=== PATIENT | female | born 1970 | race Caucasian/White ===

== ENCOUNTER 2018-10-16 17:46 | Emergency (ER) | payer BC ==
[2018-10-16 17:56] VITALS: RESP 18
[2018-10-16] MEDS ORDERED: KETOROLAC 30 MG/ML 1 ML VIAL IM STA (18:43)
--- NOTE | 2018-10-16 18:52 | ED ---
General Adult HPI - General Chief complaint: Extremity Injury, Lower Stated complaint: rt leg pain Time Seen by Provider: 10/16/18 18:06 Source: patient Mode of arrival: ambulatory Limitations: no limitations - History of Present Illness Initial comments: 48-year-old female patient presents to the emergency department today for evaluation of right leg pain. Patient states she has been having pain to the right medial knee and posteriorly for the last 2 weeks. Patient states the pain worsened today and started radiating down into her calf and up into her thigh. She denies any injury to the knee. States the light does feel swollen. Denies any numbness or tingling to the extremity. Denies fever or chills. Denies any recent travel or long car rides. Denies any use of hormonal medications or history of cancer. Denies any chest pain, shortness of breath, or palpitations. She does report an increase in low back pain over the last few weeks. States this does seem to be improving. She denies any saddle anesthesia, loss of bowel or bladder control, numbness or tingling to the lower extremities. Patient denies any recent rash, shortness breath, chest pain, abdominal pain, nausea, vomiting, diarrhea, constipation, back pain, dizziness, weakness, hematuria, dysuria, urinary urgency, urinary frequency, headache, visual changes, or any other complaints. - Related Data Home Medications Medication Instructions Recorded Confirmed Biotin 5 mg PO DAILY 10/16/18 10/16/18 Naproxen 500 mg PO DAILY PRN 10/16/18 10/16/18 PARoxetine [Paxil] 15 mg PO DAILY 10/16/18 10/16/18 Prasterone (Dhea) [Dhea] 50 mg PO DAILY 10/16/18 10/16/18 Previous Rx's Medication Instructions Recorded Cyclobenzaprine [Flexeril] 10 mg PO TID #15 tab 10/16/18 predniSONE 50 mg PO DAILY #5 tablet 10/16/18 Allergies Allergy/AdvReac Type Severity Reaction Status Date / Time Iodinated Contrast- Oral and Allergy Anaphylaxis Verified 10/16/18 18:10 IV Dye morphine Allergy Itching Verified 10/16/18 18:10 shellfish derived [Shellfish] Allergy Anaphylaxis Verified 10/16/18 18:10 Review of Systems ROS Statement: Those systems with pertinent positive or pertinent negative responses have been documented in the HPI. ROS Other: All systems not noted in ROS Statement are negative. Past Medical History Past Medical History: No Reported History History of Any Multi-Drug Resistant Organisms: None Reported Past Surgical History: Section, Tonsillectomy Past Psychological History: Depression Smoking Status: Never smoker Past Alcohol Use History: Occasional Past Drug Use History: Marijuana General Exam Limitations: no limitations General appearance: alert, in no apparent distress, other (Social well-developed , well-nourished adult female patient in no acute distress. Vital signs upon presentation are temperature 97.9F, pulse 75, respirations 18, blood pressure 132/83, pulse ox 99% on room air.) Eye exam: Present: normal appearance, PERRL, EOMI. Absent: scleral icterus, conjunctival injection, periorbital swelling ENT exam: Present: normal exam, normal oropharynx, mucous membranes moist Respiratory exam: Present: normal lung sounds bilaterally. Absent: respiratory distress, wheezes, rales, rhonchi, stridor Cardiovascular Exam: Present: regular rate, normal rhythm, normal heart sounds. Absent: systolic murmur, diastolic murmur, rubs, gallop, clicks Extremities exam: Present: full ROM, normal capillary refill, other ( Generalized swelling right lower leg. Skin pink, warm, dry. Cap refill < 3seconds. Pedal and post tibial pulses 2+ and equal bilaterally. ). Absent: normal inspection, tenderness, pedal edema, joint swelling, calf tenderness Neurological exam: Present: alert, oriented X3, CN II-XII intact, other ( Strength in all 4 extremities is 5/5. ) Psychiatric exam: Present: normal affect, normal mood Skin exam: Present: warm, dry, intact, normal color. Absent: rash Course Vital Signs 10/16/18 10/16/18 17:52 21:36 Temperature 97.9 F 97.7 F Pulse Rate 75 71 Respiratory 18 18 Rate Blood Pressure 132/83 130/76 O2 Sat by Pulse 99 98 Oximetry Medical Decision Making - Medical Decision Making 48-year-old female patient presents to the emergency department today for evaluation of right leg pain. Patient states the pain radiates down the inside of her lower right leg. Physical examination is unremarkable. Skin is pink, warm, dry. Cap refills less than 3 seconds. Patient is neurologically intact. Pulses are intact. No concerning symptoms for cauda equina. Ultrasound of the right leg is negative for DVT. Patient symptoms are consistent with a lumbar radiculopathy which we will treat with steroids anti-inflammatories and muscle relaxers. She is instructed to follow-up with her primary care physician for further evaluation. Return parameters were discussed in detail. She verbalizes understanding and agrees with this plan. - Radiology Data Radiology results: report reviewed, image reviewed Ultrasound of the right lower extremity was obtained. Report was reviewed in its entirety. Impression by Dr. Cantor shows negative DVT in the right leg. Cyst in the right popliteal space that equals 2.6 x 1.9 x 1.4 cm. Disposition Clinical Impression: Right leg pain, Lumbar radiculopathy Disposition: HOME SELF-CARE Condition: Good Instructions (If sedation given, give patient instructions): Lumbar Radiculopathy (ED), Leg Pain (ED) Additional Instructions: Perform gentle range of motion to the low back. Take medications as directed. Follow-up with your primary care physician for recheck in 1-2 days. Return to the emergency department immediately for any new, worsening, or concerning symptoms. Prescriptions: Cyclobenzaprine [Flexeril] 10 mg PO TID #15 tab predniSONE 50 mg PO DAILY #5 tablet Is patient prescribed a controlled substance at d/c from ED?: No Referrals: Daja Wen DO [Primary Care Provider] - 1-2 days Time of Disposition: 21:45
--- NOTE | 2018-10-16 20:54 | US ---
EXAMINATION TYPE: US venous doppler duplex LE RT DATE OF EXAM: 10/16/2018 6:44 PM COMPARISON: NONE CLINICAL HISTORY: Pain. Right leg pain x 2 weeks, worse with positioning. SIDE PERFORMED: Right TECHNIQUE: The lower extremity deep venous system is examined utilizing real time linear array sonog tita with graded compression, doppler sonography and color-flow sonography. VESSELS IMAGED: External Iliac Vein (EIV) Common Femoral Vein Deep Femoral Vein Greater Saphenous Vein * Femoral Vein Popliteal Vein Small Saphenous Vein * Proximal Calf Veins (* superficial vessels) Right Leg: Negative for DVT Cyst in right popliteal space = 2.6 x 1.9 x 1.4 cm Grayscale, color doppler, spectral doppler imaging performed of the deep veins of the right lower ext remity. There is normal flow, compressibility, vascular waveforms. IMPRESSION: No ultrasound evidence for acute DVT in the right lower extremity. Small Barkley cyst note d towards the end of study.
[2018-10-16 21:38] VITALS: BP 130/76; PULSE 71; TEMP 97.7
== END 2018-10-16 21:53 | disposition home or self-care (01) ==
LOC: EC 17:46
DX: M54.16 Radiculopathy, lumbar region (principal); M79.604 Pain in right leg; F32.9 Major depressive disorder, single episode, unspecified; Z79.899 Other long term (current) drug therapy; Z91.013 Allergy to seafood; Z88.5 Allergy status to narcotic agent; Z91.041 Radiographic dye allergy status
CPT/HCPCS: 93971; 99283; 96372; J1885

== ENCOUNTER 2019-02-22 05:50 | Emergency (ER) | payer BC ==
[2019-02-22 06:36] LABS: Basophils % (A) 1 %; Eosinophils # (A) 0.2 k/uL (0-0.7); Eosinophils % (A) 2 %; HCT 40.9 % (34.0-46.0); HGB 13.6 gm/dL (11.4-16.0); Lymphocytes # (A) 1.4 k/uL (1.0-4.8); Lymphocytes % (A) 18 %; MCH 32.8 pg (25.0-35.0); MCHC 33.3 g/dL (31.0-37.0); MCV 98.6 fL (80.0-100.0); Mean Platelet Volume 6.7; Monocytes # (A) 0.6 k/uL (0-1.0); Monocytes % (A) 8 %; Neutrophils # (A) 5.2 k/uL (1.3-7.7); Neutrophils % (A) 69 %; Platelet Count 306 k/uL (150-450); RBC 4.15 m/uL (3.80-5.40); RDW 12.8 % (11.5-15.5); WBC 7.6 k/uL (3.8-10.6)
[2019-02-22 06:52] LABS: ALT 28 U/L (9-52); AST 32 U/L (14-36); African American GFR (CKD) >90 (>60 ml/min/1.73 sqM); Albumin 4.5 g/dL (3.5-5.0); Alkaline Phosphatase 73 U/L (38-126); Anion Gap 9 mmol/L; Blood Urea Nitrogen 11 mg/dL (7-17); Calcium 9.9 mg/dL (8.4-10.2); Carbon Dioxide 25 mmol/L (22-30); Chloride 104 mmol/L (98-107); Glucose 123 mg/dL (74-99); Magnesium 2.1 mg/dL (1.6-2.3); Potassium 4.1 mmol/L (3.5-5.1); Sodium 138 mmol/L (137-145); Total Bilirubin 0.4 mg/dL (0.2-1.3); Total Protein 7.1 g/dL (6.3-8.2)
[2019-02-22 07:00] LABS: INR 0.9 (<1.2); Partial Thromboplastin Time 23.6 sec (22.0-30.0)
[2019-02-22] MEDS ORDERED: KETOROLAC 30 MG/ML 1 ML VIAL IVP STA (07:06)
--- NOTE | 2019-02-22 07:09 | ED ---
Chest Pain HPI - General Chief Complaint: Chest Pain Stated Complaint: Chest Pain Time Seen by Provider: 02/22/19 06:05 Source: patient, family, RN notes reviewed Mode of arrival: ambulatory Limitations: no limitations - History of Present Illness Initial Comments: This is a 48-year-old female with a prior history of smoking who quit [place]son 7 months ago who does have a family history of heart disease she has of a history of asthma states she had the onset yesterday of some upper back and neck pain about 3 AM this morning she had midsternal chest discomfort dull 8/10 severity that increased with deep breathing and was better with supine positioning. She also states she had a headache and some nausea with it no vomiting. She states is feeling somewhat better now. No cough phlegm production no palpitations no other modifying factors at this time. Patient does states she had a recent trip to [place] and back but it was approximately 2 weeks ago. MD Complaint: chest pain - Related Data Home Medications Medication Instructions Recorded Confirmed PARoxetine [Paxil] 15 mg PO DAILY 10/16/18 02/22/19 Cyclobenzaprine [Flexeril] 10 mg PO TID PRN 02/22/19 02/22/19 Previous Rx's Medication Instructions Recorded Ibuprofen 800 mg PO Q6HR PRN #20 tablet 02/22/19 Allergies Allergy/AdvReac Type Severity Reaction Status Date / Time Iodinated Contrast- Oral and Allergy Anaphylaxis Verified 02/22/19 08:43 IV Dye morphine Allergy Itching Verified 02/22/19 08:43 shellfish derived [Shellfish] Allergy Anaphylaxis Verified 02/22/19 08:43 Review of Systems ROS Statement: Those systems with pertinent positive or pertinent negative responses have been documented in the HPI. ROS Other: All systems not noted in ROS Statement are negative. EKG Findings - EKG Results: EKG: interpreted by ERMD, sinus rhythm (Sinus tachycardia rate of 104. Interval 164 QRS 62 QT since QTC 324/426 low-voltage QRS nonspecific septal configuration) Past Medical History Past Medical History: Asthma History of Any Multi-Drug Resistant Organisms: None Reported Past Surgical History: Section, Tonsillectomy Past Psychological History: Depression Smoking Status: Never smoker Past Alcohol Use History: Occasional Past Drug Use History: Marijuana General Exam - General Exam Comments Initial Comments: This is a well-developed well-nourished awake alert oriented 3 female Limitations: no limitations General appearance: alert, in no apparent distress Head exam: Present: atraumatic, normocephalic, normal inspection Eye exam: Present: normal appearance, PERRL, EOMI. Absent: scleral icterus, conjunctival injection, periorbital swelling ENT exam: Present: normal exam, mucous membranes moist Neck exam: Present: normal inspection, full ROM, other (No stridor JVD or bruits). Absent: tenderness, meningismus, lymphadenopathy Respiratory exam: Present: normal lung sounds bilaterally, chest wall tenderness (Reproducible tenderness palpation along the costal sternal margins bilaterally to the mid to lower sternum.). Absent: respiratory distress, wheezes, rales, rhonchi, stridor Cardiovascular Exam: Present: normal rhythm, tachycardia, normal heart sounds. Absent: systolic murmur, diastolic murmur, rubs, gallop, clicks GI/Abdominal exam: Present: soft, normal bowel sounds. Absent: distended, tenderness, guarding, rebound, rigid, bruit, pulsatile mass Extremities exam: Present: normal inspection, full ROM, normal capillary refill. Absent: tenderness, pedal edema, joint swelling, calf tenderness Back exam: Present: normal inspection Neurological exam: Present: alert, oriented X3, CN II-XII intact Psychiatric exam: Present: normal affect, normal mood Skin exam: Present: warm, dry, intact, normal color. Absent: rash Course Vital Signs 02/22/19 02/22/19 02/22/19 05:54 06:31 08:02 Temperature 98.7 F Pulse Rate 105 H 82 Pulse Rate [ 110 H Tail Trimmer ] Respiratory 22 Rate Blood Pressure 117/84 113/82 O2 Sat by Pulse 96 96 Oximetry 02/22/19 09:21 Temperature 98 F Pulse Rate 87 Pulse Rate [ Tail Trimmer ] Respiratory 19 Rate Blood Pressure 110/63 O2 Sat by Pulse 95 Oximetry Chest Pain MDM - MDM I did review the imaging and report no acute findings. I did discuss findings with the patient and her . The patient's presentation consistent with musculoskeletal chest pain/costochondritis she will be discharged on appropriate medication she is to follow-up with her doctor and return when necessary Disposition Clinical Impression: Costalchondritis, Chest wall syndrome Disposition: HOME SELF-CARE Condition: Good Instructions (If sedation given, give patient instructions): Costochondritis (ED) Prescriptions: Ibuprofen 800 mg PO Q6HR PRN #20 tablet PRN Reason: Pain Is patient prescribed a controlled substance at d/c from ED?: No Referrals: Daja Wen DO [Primary Care Provider] - 1-2 days
--- NOTE | 2019-02-22 07:18 | XR ---
INDICATION: Chest pain COMPARISON: None FINDINGS: Frontal and lateral views of the chest are provided. The cardiomediastinal silhouette and pulmonary vascularity are normal. The lungs are clear. There is no pleural effusion or pneumothorax. There are no acute osseous findings. IMPRESSION: No acute cardiopulmonary disease.
[2019-02-22 07:20] LABS: D-Dimer 0.6 mg/L FEU (<0.60)
[2019-02-22] MEDS ORDERED: FAMOTIDINE 20 MG/2 ML VIAL IV STA (07:29)
[2019-02-22] MEDS ORDERED: methylPREDNISolone SOD SUCCI 125 MG/2 ML VIAL IV STA (07:30)
[2019-02-22] MEDS ORDERED: diphenhydrAMINE 50 MG/ML 1 ML VIAL IVP STA (07:30)
--- NOTE | 2019-02-22 09:09 | CT ---
EXAMINATION TYPE: CT angio chest DATE OF EXAM: 02/22/2019 COMPARISON: Right lower extremity venous Doppler ultrasound dated 10/16/2018 HISTORY: Chest pain CT DLP: 365.1 mGycm. Automated Exposure Control for Dose Reduction was Utilized. CONTRAST: CTA scan of the thorax is performed without and with IV Contrast, patient injected with 100 ml mL of Isovue 370, pulmonary embolism protocol. MIP Images are created on CT scanner and reviewed. FINDINGS: LUNGS: The lungs are grossly clear, there is no concerning parenchymal mass or nodule identified. T here is no pleural effusion or pneumothorax seen. The tracheobronchial tree is patent. MEDIASTINUM: There is suboptimal enhancement of the pulmonary artery and its branches, with greater o pacification of the aorta and the pulmonary arteries. No central pulmonary embolism. There are no gr eater than 1 cm hilar or mediastinal lymph nodes. No cardiomegaly or pericardial effusion is seen. No discrete coronary artery calcifications. OTHER: Too small to accurately characterize hepatic dome lesion measures 8 mm. This is hypoattenuated . Mild multilevel degenerative changes of the spine. IMPRESSION: 1. Markedly suboptimal bolus timing, however no central pulmonary embolus is seen. 2. Incidentally noted 2 small to accurately characterize hepatic lesion.
[2019-02-22 09:22] VITALS: BP 110/63; PULSE 87; RESP 19; TEMP 98
== END 2019-02-22 09:36 | disposition home or self-care (01) ==
LOC: EC 05:50
DX: M94.0 Chondrocostal junction syndrome [Tietze] (principal); R51 Headache; R11.0 Nausea; M54.2 Cervicalgia; M54.6 Pain in thoracic spine; F32.9 Major depressive disorder, single episode, unspecified; Z79.899 Other long term (current) drug therapy; Z87.891 Personal history of nicotine dependence; Z88.5 Allergy status to narcotic agent; Z91.013 Allergy to seafood; Z91.041 Radiographic dye allergy status; Z82.49 Family history of ischemic heart disease and other diseases of the circulatory system
CPT/HCPCS: 36415; 93005; 85379; 80053; 82550; 83735; 84484; 85025; 85610; 85730; 71046; 71275; 99285; 96374; 96375 ×3; J1200; J2930; J1885; Q9967

== ENCOUNTER → 2021-02-13 | Outpatient (CLI) | payer BC ==
--- NOTE | 2021-02-15 21:50 | US ---
EXAMINATION TYPE: US transvaginal DATE OF EXAM: 02/13/2021 COMPARISON: NONE CLINICAL HISTORY: 50-year-old female Post menopausal bleeding N95.0. TECHNIQUE: Transvaginal sonographic images of the pelvis were acquired. Date of LMP: June 2018 EXAM MEASUREMENTS: Uterus: 6.7 x 3.2 x 3.9 cm Endometrial Stripe: 0.2 cm Right Ovary: 1.7 x 1.4 x 1.7 cm Left Ovary: 3.1 x 1.4 x 1.6 cm 1. Uterus: Anteverted. The myometrium is bulky and heterogeneous. Hypoechoic area visualized measu ring 2.0 x 1.6 x 1.4 cm, probable fibroid along the posterior right uterine fundus. Small 4 mm cystic area along the anterior lower uterine segment; query any history of prior section. 2. Endometrium: wnl as visualized 3. Right Ovary: wnl 4. Left Ovary: wnl 5. Bilateral Adnexa: wnl 6. Posterior cul-de-sac: wnl IMPRESSION: 1. Heterogeneous, fibroid uterus with a 2.0 cm focal fibroid right posterior uterine fundus. 2. Thin endometrial stripe measuring 2 mm. 3. Tiny 4 mm cystic area along the anterior lower uterine segment of unknown etiology, possible cervi angeles nabothian cyst. A small scar niche is possible if prior .
== END | disposition home or self-care (01) ==
LOC: RADUSWWP 16:51
PROVIDERS: ATTEND Obstetrics & Gynecology
DX: D25.9 Leiomyoma of uterus, unspecified (principal)
CPT/HCPCS: 76830

== ENCOUNTER → 2021-10-07 | Outpatient (CLI) | payer BC ==
--- NOTE | 2021-10-13 08:43 | MM ---
Reason for exam: clinical finding. Last mammogram was performed 2 years and 6 months ago. History: Patient is postmenopausal. Indicated problem(s): lump or thickening in the right breast. Physical Findings: Nurse Summary: 1cm nodule in the right breast at 7 o'clock (nurse mj). MG 3D Diag Mammo W/Cad SALVADOR Bilateral CC and MLO view(s) were taken. Prior study comparison: April 18, 2019, mammogram, performed at [facility]. The breast tissue is heterogeneously dense. This may lower the sensitivity of mammography. There is chronic nodularity bilaterally. There is no discrete abnormality including area of concern right palpable. These results were verbally communicated with the patient on 10/12/21. ASSESSMENT: Benign, BI-RAD 2 RECOMMENDATION: Ultrasound of the right breast. Routine screening mammogram of both breasts in 1 year. Manage on a clinical basis with regard to right palpable.
--- NOTE | 2021-10-13 08:48 | USB ---
Reason for exam: additional evaluation requested from abnormal screening. History: Patient is postmenopausal. US Breast Limited RT Right limited breast ultrasound including focal area of concern, retroareolar and axilla demonstrates a 1.2 x 0.4 x 1.3cm superficial hypoechoic lesio at 7 o'clock, can be infection. Right breast palpable scanned at 7 o'clock. These results were verbally communicated with the patient on 10/12/21. ASSESSMENT: Probably benign, BI-RAD 3 RECOMMENDATION: Routine screening mammogram of both breasts in 1 year. Manage patient on a clinical basis.
== END | disposition home or self-care (01) ==
LOC: RADMAMWWP 07:28
PROVIDERS: ATTEND Obstetrics & Gynecology
DX: N63.0 Unspecified lump in unspecified breast (principal); N64.52 Nipple discharge; R92.8 Other abnormal and inconclusive findings on diagnostic imaging of breast
CPT/HCPCS: 77062; 77066

== ENCOUNTER 2022-09-08 11:55 | Emergency (ER) | payer BC ==
[2022-09-08 12:04] VITALS: TEMP 98
[2022-09-08] MEDS ORDERED: LIDOCAINE 1% INJ 10MG/ML (30 ML VIAL-PF) SQ ONE (13:13)
[2022-09-08] MEDS ORDERED: KETOROLAC 15 MG/ML 1 ML VIAL IVP STA (13:13)
--- NOTE | 2022-09-08 13:16 | ED ---
General Adult HPI - General Chief complaint: Skin/Abscess/Foreign Body Stated complaint: Mass on bottom Time Seen by Provider: 09/08/22 13:06 Source: patient, RN notes reviewed Mode of arrival: ambulatory - History of Present Illness Initial comments: 52-year-old female presents to the emergency department with a chief complaint of left gluteal abscess. She reports that she has had abscesses on and off for the last 3 months however they usually on their own. This abscess for about 3 days for which she notes worsening redness, tenderness and admits to associated fevers. She has been trying to use hot tea bag and sitz baths with mild relief. She denies any self incisions or draining. She is headache, chest pain, palpitations, nausea, vomiting, diarrhea. Denies history of perirectal abscess or diabetes. - Related Data Home Medications Medication Instructions Recorded Confirmed PARoxetine [Paxil] 10 mg PO DAILY 10/16/18 02/22/19 Cyclobenzaprine [Flexeril] 10 mg PO TID PRN 02/22/19 02/22/19 Previous Rx's Medication Instructions Recorded Ibuprofen 800 mg PO Q6HR PRN #20 tablet 02/22/19 Cephalexin [Keflex] 500 mg PO Q6HR #40 cap 09/08/22 Sulfamethox-Tmp 800-160Mg [Bactrim 1 tab PO Q12HR 10 Days #20 tab 09/08/22 DS 800-160 mg] Allergies Allergy/AdvReac Type Severity Reaction Status Date / Time Iodinated Contrast Media Allergy Anaphylaxis Verified 09/08/22 12:03 [Iodinated Contrast- Oral and IV Dye] morphine Allergy Itching Verified 09/08/22 12:03 shellfish derived [Shellfish] Allergy Anaphylaxis Verified 09/08/22 12:03 Review of Systems ROS Statement: Those systems with pertinent positive or pertinent negative responses have been documented in the HPI. ROS Other: All systems not noted in ROS Statement are negative. Past Medical History Past Medical History: Asthma History of Any Multi-Drug Resistant Organisms: None Reported Past Surgical History: Section, Tonsillectomy Past Psychological History: Depression Past Alcohol Use History: Occasional Past Drug Use History: Marijuana General Exam General appearance: alert, in no apparent distress Head exam: Present: atraumatic, normocephalic, normal inspection Eye exam: Present: normal appearance, PERRL, EOMI. Absent: scleral icterus, conjunctival injection, periorbital swelling ENT exam: Present: normal exam, mucous membranes moist Neck exam: Present: normal inspection. Absent: tenderness, meningismus, lymphadenopathy Respiratory exam: Present: normal lung sounds bilaterally. Absent: respiratory distress, wheezes, rales, rhonchi, stridor Cardiovascular Exam: Present: regular rate, normal rhythm, normal heart sounds. Absent: systolic murmur, diastolic murmur, rubs, gallop, clicks GI/Abdominal exam: Present: soft, normal bowel sounds. Absent: distended, tenderness, guarding, rebound, rigid Extremities exam: Present: normal inspection, full ROM, normal capillary refill. Absent: tenderness, pedal edema, joint swelling, calf tenderness Back exam: Present: normal inspection Neurological exam: Present: alert, oriented X3, CN II-XII intact Psychiatric exam: Present: normal affect, normal mood Skin exam: Present: warm, dry, intact, normal color, other (1cm lesion to L gluteal muscle that is fluctuance, erythema, that is tender. No active bleeding or drianage). Absent: rash Course Vital Signs 09/08/22 11:59 Temperature 98.0 F Pulse Rate 102 H Respiratory 16 Rate Blood Pressure 138/95 O2 Sat by Pulse 100 Oximetry Procedures - Incision & Drainage Consent Obtained: verbal consent, written consent Site: buttock (L) Anesthetic Used: lidocaine 1% I&D Cleaning Method: Chloroprep, Alcohol Wipe Sterile Field Used?: Yes Scalpel Used: #11 Needle Aspiration Performed?: No Irrigation Performed?: Yes I&D Drainage Obtained: Pus, Blood Culture Obtained?: Yes Complications: pain, bleeding, nerve injury, allergic reaction Patient Tolerated Procedure: well, no complications Medical Decision Making - Medical Decision Making Was pt. sent in by a medical professional or institution (, PA, FIFTH HAND, urgent care, hospital, or [facility]cc...) When possible be specific @ -[No] Did you speak to anyone other than the patient for history (EMS, parent, family, police, friend...)? What history was obtained from this source @ -[No] Did you review nursing and triage notes (agree or disagree)? Why? @ -[I reviewed and agree with nursing and triage notes] Were old charts reviewed (outside hosp., previous admission, EMS record, old EKG, old radiological studies, urgent care reports/EKG's, mcc records)? Report findings @ -[No old charts were reviewed] Differential Diagnosis (chest pain, altered mental status, abdominal pain women, abdominal pain men, vaginal bleeding, weakness, fever, dyspnea, syncope, headache, dizziness, GI bleed, back pain, seizure, CVA, palpatations, mental health)? @ -[not applicable] EKG interpreted by me (3pts min.). @ -[As above] X-rays interpreted by me (1pt min.). @ -[None done] CT interpreted by me (1pt min.). @ -[None done] U/S interpreted by me (1pt. min.). @ -[None done] What testing was considered but not performed or refused? (CT, X-rays, U/S, labs)? Why? @ -[None] What meds were considered but not given or refused? Why? @ -[None] Did you discuss the management of the patient with other professionals (professionals i.e. , PA, FIFTH HAND, lab, RT, psych nurse, social media director, high tension tester, teacher, certified juvenile probation officer, assistant case manager)? Give summary @ -[No] Was smoking cessation discussed for >3mins.? @ -[No] Was critical care preformed (if so, how long)? @ -[No] Were there social determinants of health that impacted care today? How? (Homelessness, low income, unemployed, alcoholism, drug addiction, transportat ion, low edu. Level, literacy, decrease access to med. care, long-term, rehab)? @ -[No] Was there de-escalation of care discussed even if they declined (Discuss DNR or withdrawal of care, Hospice)? DNR status @ -[No] What co-morbidities impacted this encounter? (DM, HTN, Smoking, COPD, CAD, Cancer, CVA, ARF, Chemo, Hep., AIDS, mental health diagnosis, sleep apnea, morbid obesity)? @ -[None] Was patient admitted / discharged? Hospital course, mention meds given and route, prescriptions, significant lab abnormalities, going to OR and other pertinent info. @ -42-year-old female presents to the emergency department with an abscess. Thorough history and physical performed, physical exam reveals a an abscess to the left gluteal muscle. Patient had an incision and drainage performed in the emergency department, she is well. Lab work was unremarkable. She was given a prescription for Keflex and Bactrim. I discussed the nature of the illness of an abscess with the patient all questions and concerns were addressed. Return precautions were discussed. I discussed the case with Dr. marc who agrees with plan of care. Undiagnosed new problem with uncertain prognosis? @ -[No] Drug Therapy requiring intensive monitoring for toxicity (Heparin, Nitro, Insulin, Cardizem)? @ -[No] Were any procedures done? @ -[No] Diagnosis/symptom? @ -abscess Acute, or Chronic, or Acute on Chronic? @ -acute Uncomplicated (without systemic symptoms) or Complicated (systemic symptoms)? @ -[default] Side effects of treatment? @ -[No] Exacerbation, Progression, or Severe Exacerbation? @ -[No] Poses a threat to life or bodily function? How? (Chest pain, [place], [place], pneumonia, PE, COPD, DKA, ARF, appy, cholecystitis, CVA, Diverticulitis, Homicidal, Suicidal, threat to staff... and all critical care pts) @ -[No] - Lab Data Result diagrams: 09/08/22 13:45 09/08/22 13:45 Lab Results 09/08/22 09/08/22 Range/Units 13:45 13:45 WBC 7.8 (3.8-10.6) k/uL RBC 3.76 L (3.80-5.40) m/uL Hgb 12.6 (11.4-16.0) gm/dL Hct 37.2 (34.0-46.0) % MCV 99.0 (80.0-100.0) fL MCH 33.6 (25.0-35.0) pg MCHC 34.0 (31.0-37.0) g/dL RDW 12.6 (11.5-15.5) % Plt Count 357 (150-450) k/uL MPV 7.5 Neutrophils % 64 % Lymphocytes % 24 % Monocytes % 6 % Eosinophils % 5 % Basophils % 1 % Neutrophils # 5.0 (1.3-7.7) k/uL Lymphocytes # 1.8 (1.0-4.8) k/uL Monocytes # 0.5 (0-1.0) k/uL Eosinophils # 0.4 (0-0.7) k/uL Basophils # 0.0 (0-0.2) k/uL Sodium 141 (137-145) mmol/L Potassium 3.9 (3.5-5.1) mmol/L Chloride 109 H (98-107) mmol/L Carbon Dioxide 30 (22-30) mmol/L Anion Gap 2 mmol/L BUN 11 (7-17) mg/dL Creatinine 0.80 (0.52-1.04) mg/dL Est GFR (CKD-EPI)AfAm >90 (>60 ml/min/1.73 sqM) Est GFR (CKD-EPI)NonAf 84 (>60 ml/min/1.73 sqM) Glucose 105 H (74-99) mg/dL Calcium 8.9 (8.4-10.2) mg/dL Disposition Clinical Impression: Abscess, gluteal, left Disposition: HOME SELF-CARE Condition: Stable Instructions (If sedation given, give patient instructions): Abscess Incision and Drainage (ED), Abscess (ED) Additional Instructions: Case return to the nearest emergency department if symptoms worsen or persist. Prescriptions: Sulfamethox-Tmp 800-160Mg [Bactrim DS 800-160 mg] 1 tab PO Q12HR 10 Days #20 tab Cephalexin [Keflex] 500 mg PO Q6HR #40 cap Is patient prescribed a controlled substance at d/c from ED?: No Referrals: None,Stated [Primary Care Provider] - 1-2 days Time of Disposition: 14:12
[2022-09-08 13:54] LABS: Basophils % (A) 1 %; Eosinophils # (A) 0.4 k/uL (0-0.7); Eosinophils % (A) 5 %; HCT 37.2 % (34.0-46.0); HGB 12.6 gm/dL (11.4-16.0); Lymphocytes # (A) 1.8 k/uL (1.0-4.8); Lymphocytes % (A) 24 %; MCH 33.6 pg (25.0-35.0); Mean Platelet Volume 7.5; Monocytes # (A) 0.5 k/uL (0-1.0); Monocytes % (A) 6 %; Neutrophils % (A) 64 %; Platelet Count 357 k/uL (150-450); RBC 3.76 m/uL (3.80-5.40); RDW 12.6 % (11.5-15.5); WBC 7.8 k/uL (3.8-10.6)
[2022-09-08 14:23] LABS: African American GFR (CKD) >90 (>60 ml/min/1.73 sqM); Anion Gap 2 mmol/L; Blood Urea Nitrogen 11 mg/dL (7-17); Calcium 8.9 mg/dL (8.4-10.2); Carbon Dioxide 30 mmol/L (22-30); Chloride 109 mmol/L (98-107); Glucose 105 mg/dL (74-99); Non-African American GFR(CKD) 84 (>60 ml/min/1.73 sqM); Potassium 3.9 mmol/L (3.5-5.1); Sodium 141 mmol/L (137-145)
[2022-09-08 14:43] VITALS: RESP 18
[2022-09-08 14:44] VITALS: BP 118/74; PULSE 68
== END 2022-09-08 14:43 | disposition home or self-care (01) ==
LOC: EC 11:55
DX: L02.31 Cutaneous abscess of buttock (principal); J45.909 Unspecified asthma, uncomplicated; F32.A Depression, unspecified; F12.90 Cannabis use, unspecified, uncomplicated; Z91.041 Radiographic dye allergy status; Z88.5 Allergy status to narcotic agent; Z91.013 Allergy to seafood
CPT/HCPCS: 36415; 80048; 85025; 87070; 87205; 99283; 96374; 10060; J2001; J1885

== ENCOUNTER 2022-11-17 16:26 | Observation (INO) | payer BC ==
[2022-11-17] MEDS ORDERED: SODIUM CHLORIDE 0.9% 1,000 ML IV STA (16:37)
[2022-11-17] MEDS ORDERED: fentaNYL (PF) 50 MCG/ML 2 ML AMP IVP STA (16:41)
[2022-11-17] MEDS ORDERED: ONDANSETRON 4 MG/2 ML VIAL IVP STA (16:44)
[2022-11-17 16:54] LABS: Basophils # (A) 0.1 k/uL (0-0.2); Basophils % (A) 1 %; Eosinophils # (A) 0.4 k/uL (0-0.7); Eosinophils % (A) 4 %; HCT 43.7 % (34.0-46.0); HGB 14.6 gm/dL (11.4-16.0); Lymphocytes # (A) 2.9 k/uL (1.0-4.8); Lymphocytes % (A) 29 %; MCH 33.3 pg (25.0-35.0); MCHC 33.4 g/dL (31.0-37.0); MCV 99.8 fL (80.0-100.0); Mean Platelet Volume 7.4; Monocytes # (A) 0.7 k/uL (0-1.0); Monocytes % (A) 7 %; Neutrophils # (A) 5.8 k/uL (1.3-7.7); Neutrophils % (A) 57 %; Platelet Count 370 k/uL (150-450); RBC 4.38 m/uL (3.80-5.40); RDW 12.7 % (11.5-15.5); WBC 10.1 k/uL (3.8-10.6)
--- NOTE | 2022-11-17 17:07 | XR ---
EXAMINATION TYPE: XR chest 1V portable DATE OF EXAM: 11/17/2022 4:44 PM COMPARISON: Chest radiographs from 02/22/2019. TECHNIQUE: XR chest 1V portable Frontal view of the chest. CLINICAL INDICATION:Female, 52 years old with history of chest pain; FINDINGS: Lungs/Pleura: There is flattening of the diaphragm with increased lucency of the lungs. No evidence o f pneumothorax, pleural effusion or focal consolidation. Pulmonary vascularity: Unremarkable. Heart/mediastinum: Cardiomediastinal silhouette is unremarkable. Musculoskeletal: No acute osseous pathology. IMPRESSION: 1. No acute cardiopulmonary disease process. 2. COPD changes.
[2022-11-17 17:10] LABS: INR 0.9 (<1.2); Partial Thromboplastin Time 22.3 sec (22.0-30.0); Prothrombin Time 9.8 sec (9.0-12.0)
[2022-11-17] MEDS ORDERED: HYDROmorphone 0.5 MG/0.5 ML SYRINGE IVP PRN (17:16)
--- NOTE | 2022-11-17 17:38 | US ---
EXAMINATION TYPE: US gallbladder DATE OF EXAM: 11/17/2022 COMPARISON: NONE CLINICAL HISTORY: RUq pain. RUQ pain, nausea TECHNIQUE: Multiple sonographic images of the right upper quadrant are obtained. FINDINGS: EXAM MEASUREMENTS: Liver Length: 15.7 cm Gallbladder Wall: 0.4 cm CBD: 0.6 cm Right Kidney: 9.8 x 4.4 x 4.1 cm MANAGER VEHICLE NOTES:Technical limitations due to large amount of overlying bowel content and patient breathing heavily Pancreas: Obscured by bowel gas Liver: visualized portions appear wnl Gallbladder: hydropic, possible sludge Evidence for sonographic Russ's sign: no CBD: upper limits of normal Right Kidney: no evidence of hydronephrosis IMPRESSION: Distended gallbladder with biliary sludge suggested. No evidence for wall thickening, pericholecystic fluid or positive sonographic Russ's sign to suggest acute cholecystitis.
[2022-11-17 17:47] LABS: ALT 19 U/L (4-34); AST 24 U/L (14-36); African American GFR (CKD) >90 (>60 ml/min/1.73 sqM); Albumin 4.6 g/dL (3.5-5.0); Alkaline Phosphatase 77 U/L (38-126); Anion Gap 14 mmol/L; Blood Urea Nitrogen 12 mg/dL (7-17); Calcium 10.2 mg/dL (8.4-10.2); Carbon Dioxide 21 mmol/L (22-30); Chloride 104 mmol/L (98-107); Glucose 111 mg/dL (74-99); Lipase 534 U/L (23-300); Non-African American GFR(CKD) >90 (>60 ml/min/1.73 sqM); Potassium 3.6 mmol/L (3.5-5.1); Sodium 139 mmol/L (137-145); Total Bilirubin 0.6 mg/dL (0.2-1.3); Total Protein 7.1 g/dL (6.3-8.2)
[2022-11-17] MEDS ORDERED: HYDROmorphone 0.5 MG/0.5 ML SYRINGE IVP STA (17:52)
[2022-11-17] MEDS ORDERED: methylPREDNISolone SOD SUCCI 125 MG/2 ML VIAL IV STA (17:53)
[2022-11-17] MEDS ORDERED: FAMOTIDINE 20 MG/2 ML VIAL IV STA (17:53)
[2022-11-17] MEDS ORDERED: diphenhydrAMINE 50 MG/ML 1 ML VIAL IVP STA (17:53)
--- NOTE | 2022-11-17 18:03 | ED ---
General Adult HPI - General Chief complaint: Chest Pain Stated complaint: chest pain Time Seen by Provider: 11/17/22 16:33 Source: patient, RN notes reviewed, old records reviewed Mode of arrival: wheelchair Limitations: no limitations - History of Present Illness Initial comments: 52-year-old female presenting with 2 hours of lower chest pain and right upper quadrant pain. Pain woke patient from sleep and is severe. She is associated with nausea vomiting. No prior history of coronary artery disease. Patient has not had previous issues with her gallbladder. She does report associated dyspnea which is related to pain. No fever. - Related Data Home Medications Medication Instructions Recorded Confirmed PARoxetine [Paxil] 10 mg PO DIRECTED 10/16/18 11/17/22 Cholecalciferol [Vitamin D3 (25 50 mcg PO DAILY 11/17/22 11/17/22 Mcg = 1000 Iu)] Vitamin E (Dl,Tocopheryl Acet) 400 unit PO DAILY 11/17/22 11/17/22 [Vitamin E (400 Iu = 180 mg)] Allergies Allergy/AdvReac Type Severity Reaction Status Date / Time Iodinated Contrast Media Allergy Anaphylaxis Verified 11/17/22 17:16 [Iodinated Contrast- Oral and IV Dye] morphine Allergy Itching Verified 11/17/22 17:16 shellfish derived [Shellfish] Allergy Anaphylaxis Verified 11/17/22 17:16 Review of Systems ROS Statement: Those systems with pertinent positive or pertinent negative responses have been documented in the HPI. ROS Other: All systems not noted in ROS Statement are negative. Past Medical History Past Medical History: Asthma History of Any Multi-Drug Resistant Organisms: None Reported Past Surgical History: Section, Tonsillectomy Past Psychological History: Depression Past Alcohol Use History: Occasional Past Drug Use History: Marijuana General Exam Limitations: no limitations General appearance: alert, in no apparent distress Head exam: Present: atraumatic, normocephalic Eye exam: Present: normal appearance, PERRL ENT exam: Present: normal exam Neck exam: Present: normal inspection. Absent: tenderness, meningismus Respiratory exam: Present: normal lung sounds bilaterally. Absent: respiratory distress, wheezes Cardiovascular Exam: Present: regular rate, normal rhythm GI/Abdominal exam: Present: tenderness (ruq). Absent: distended Extremities exam: Present: normal inspection, normal capillary refill. Absent: pedal edema, calf tenderness Back exam: Absent: CVA tenderness (R), CVA tenderness (L) Neurological exam: Present: alert, oriented X3, CN II-XII intact. Absent: motor sensory deficit Psychiatric exam: Present: anxious Skin exam: Present: warm, dry, intact, normal color. Absent: cyanosis Course Vital Signs 11/17/22 11/17/22 11/17/22 16:27 17:00 17:30 Temperature 98.1 F Pulse Rate 82 96 81 Respiratory 16 20 20 Rate Blood Pressure 85/60 133/99 155/86 O2 Sat by Pulse 100 100 99 Oximetry 11/17/22 18:00 Temperature Pulse Rate 77 Respiratory 20 Rate Blood Pressure 145/79 O2 Sat by Pulse 100 Oximetry EKG Findings - EKG Comments: EKG Findings:: Sinus rhythm, low voltage, rate 94, SC interval 161, QRS duration 89, QTC 429, no ST segment elevation. Medical Decision Making - Medical Decision Making Was pt. sent in by a medical professional or institution (, PA, SHIPPING AND RECEIVING OPERATOR, urgent care, hospital, or correction...) When possible be specific @ -[No] Did you speak to anyone other than the patient for history (EMS, parent, family, police, friend...)? What history was obtained from this source @ -[No] Did you review nursing and triage notes (agree or disagree)? Why? @ -[I reviewed and agree with nursing and triage notes] Were old charts reviewed (outside hosp., previous admission, EMS record, old EKG, old radiological studies, urgent care reports/EKG's, correction records)? Report findings @ -[No old charts were reviewed] Differential Diagnosis (chest pain, altered mental status, abdominal pain women, abdominal pain men, vaginal bleeding, weakness, fever, dyspnea, syncope, headache, dizziness, GI bleed, back pain, seizure, CVA, palpatations, mental health, musculoskeletal)? @ -[Differential Abdominal Pain Women: Appendicitis, Cholecystitis, diverticulosis, ischemic bowel, pancreatitis, hepatitis, UTI, gastroenteritis, AAA, incarcerated hernia, bowel obstruction, constipation, inflammatory bowel, hepatitis, peptic ulcer disease, splenic infarction, perforated viscus, vulvitis, ovarian torsion, PID, kidney stone, p lacenta abruption, this is not meant to be an all-inclusive list] EKG interpreted by me (3pts min.). @ -[As above] X-rays interpreted by me (1pt min.). @ -[Chest x-ray negative for acute findings] CT interpreted by me (1pt min.). @ -[CT of the aorta and abdomen is performed and shows findings consistent with acute cholecystitis.] U/S interpreted by me (1pt. min.). @ -[Bedside ultrasound showing a distended gallbladder with gallbladder sludge and positive Russ's. Formal ultrasound does show distended gallbladder but negative Russ's. What testing was considered but not performed or refused? (CT, X-rays, U/S, labs)? Why? @ -[None] What meds were considered but not given or refused? Why? @ -[None] Did you discuss the management of the patient with other professionals (professionals i.e. , PA, SHIPPING AND RECEIVING OPERATOR, lab, RT, psych nurse, rn social work, orthopedic cast specialist, teacher, chief security officer, continuous pillowcase cutter)? Give summary @ -[General surgery and internal medicine] Was smoking cessation discussed for >3mins.? @ -[No] Was critical care preformed (if so, how long)? @ -[No] Were there social determinants of health that impacted care today? How? (Home lessness, low income, unemployed, alcoholism, drug addiction, transportation, low edu. Level, literacy, decrease access to med. care, [facility]cc, rehab)? @ -[No] Was there de-escalation of care discussed even if they declined (Discuss DNR or withdrawal of care, Hospice)? DNR status @ -[No] What co-morbidities impacted this encounter? (DM, HTN, Smoking, COPD, CAD, Cancer, CVA, ARF, Chemo, Hep., AIDS, mental health diagnosis, sleep apnea, morbid obesity)? @ -[None] Was patient admitted / discharged? Hospital course, mention meds given and route, prescriptions, significant lab abnormalities, going to OR and other pertinent info. @ -[52-year-old female presenting with acute onset epigastric and right upper quadrant pain. History physical exam finding consistent with acute cholecystitis. EKG is nonischemic. Ultrasound and CT imaging confirming diagnosis of acute cholecystitis. There is a mildly distended, bile duct and a minimally elevated lipase. Liver enzymes are normal. Patient will be admitted to general surgery, Dr. Bhatia with internal medicine and gastroenterology on consult.] Undiagnosed new problem with uncertain prognosis? @ -[No] Drug Therapy requiring intensive monitoring for toxicity (Heparin, Nitro, Insulin, Cardizem)? @ -[No] Were any procedures done? @ -[No] Diagnosis/symptom? @ -[Acute cholecystitis, gallstone pancreatitis] Acute, or Chronic, or Acute on Chronic? @ -[Acute] Uncomplicated (without systemic symptoms) or Complicated (systemic symptoms)? @ -[Complicated] Side effects of treatment? @ -[No] Exacerbation, Progression, or Severe Exacerbation? @ -[No] Poses a threat to life or bodily function? How? (Chest pain, [place], [place], pneumonia, PE, COPD, DKA, ARF, appy, cholecystitis, CVA, Diverticulitis, Homicidal, Suicidal, threat to staff... and all critical care pts) @ -[Yes, ascending cholangitis, sepsis, multiorgan failure.] - Lab Data Result diagrams: 11/17/22 16:37 11/17/22 16:37 Lab Results 11/17/22 11/17/22 11/17/22 Range/Units 16:37 16:37 16:37 WBC 10.1 (3.8-10.6) k/uL RBC 4.38 (3.80-5.40) m/uL Hgb 14.6 (11.4-16.0) gm/dL Hct 43.7 (34.0-46.0) % MCV 99.8 (80.0-100.0) fL MCH 33.3 (25.0-35.0) pg MCHC 33.4 (31.0-37.0) g/dL RDW 12.7 (11.5-15.5) % Plt Count 370 (150-450) k/uL MPV 7.4 Neutrophils % 57 % Lymphocytes % 29 % Monocytes % 7 % Eosinophils % 4 % Basophils % 1 % Neutrophils # 5.8 (1.3-7.7) k/uL Lymphocytes # 2.9 (1.0-4.8) k/uL Monocytes # 0.7 (0-1.0) k/uL Eosinophils # 0.4 (0-0.7) k/uL Basophils # 0.1 (0-0.2) k/uL PT 9.8 (9.0-12.0) sec INR 0.9 (<1.2) APTT 22.3 (22.0-30.0) sec Sodium 139 (137-145) mmol/L Potassium 3.6 (3.5-5.1) mmol/L Chloride 104 (98-107) mmol/L Carbon Dioxide 21 L (22-30) mmol/L Anion Gap 14 mmol/L BUN 12 (7-17) mg/dL Creatinine 0.69 (0.52-1.04) mg/dL Est GFR (CKD-EPI)AfAm >90 (>60 ml/min/1.73 sqM) Est GFR (CKD-EPI)NonAf >90 (>60 ml/min/1.73 sqM) Glucose 111 H (74-99) mg/dL Calcium 10.2 (8.4-10.2) mg/dL Magnesium 2.0 (1.6-2.3) mg/dL Total Bilirubin 0.6 (0.2-1.3) mg/dL AST 24 (14-36) U/L ALT 19 (4-34) U/L Alkaline Phosphatase 77 (38-126) U/L Troponin I (0.000-0.034) ng/mL Total Protein 7.1 (6.3-8.2) g/dL Albumin 4.6 (3.5-5.0) g/dL Lipase 534 H (23-300) U/L 11/17/22 11/17/22 Range/Units 16:37 18:40 WBC (3.8-10.6) k/uL RBC (3.80-5.40) m/uL Hgb (11.4-16.0) gm/dL Hct (34.0-46.0) % MCV (80.0-100.0) fL MCH (25.0-35.0) pg MCHC (31.0-37.0) g/dL RDW (11.5-15.5) % Plt Count (150-450) k/uL MPV Neutrophils % % Lymphocytes % % Monocytes % % Eosinophils % % Basophils % % Neutrophils # (1.3-7.7) k/uL Lymphocytes # (1.0-4.8) k/uL Monocytes # (0-1.0) k/uL Eosinophils # (0-0.7) k/uL Basophils # (0-0.2) k/uL PT (9.0-12.0) sec INR (<1.2) APTT (22.0-30.0) sec Sodium (137-145) mmol/L Potassium (3.5-5.1) mmol/L Chloride (98-107) mmol/L Carbon Dioxide (22-30) mmol/L Anion Gap mmol/L BUN (7-17) mg/dL Creatinine (0.52-1.04) mg/dL Est GFR (CKD-EPI)AfAm (>60 ml/min/1.73 sqM) Est GFR (CKD-EPI)NonAf (>60 ml/min/1.73 sqM) Glucose (74-99) mg/dL Calcium (8.4-10.2) mg/dL Magnesium (1.6-2.3) mg/dL Total Bilirubin (0.2-1.3) mg/dL AST (14-36) U/L ALT (4-34) U/L Alkaline Phosphatase (38-126) U/L Troponin I <0.012 <0.012 (0.000-0.034) ng/mL Total Protein (6.3-8.2) g/dL Albumin (3.5-5.0) g/dL Lipase (23-300) U/L Disposition Clinical Impression: Acute cholecystitis Disposition: ADMITTED IP TO THIS HOSP Condition: Stable Is patient prescribed a controlled substance at d/c from ED?: No Time of Disposition: 19:43
--- NOTE | 2022-11-17 18:54 | CT ---
EXAMINATION TYPE: CT angio thor/abd pel aorta CT DLP: 1504.8 mGycm, Automated exposure control for dose reduction was used. DATE OF EXAM: 11/17/2022 6:30 PM COMPARISON: 02/22/2019. CLINICAL INDICATION:Female, 52 years old with history of CP/Back pain; PHH, c/o posterior chest pain TECHNIQUE: Dissection protocol: Multiple axial CT images of the chest, abdomen, and pelvis were obtai celena prior and to the administration of IV contrast. 3-D reformats and maximum intensity projection fo rmat were performed on a separate workstation. Contrast used:100 mL of Isovue 300 without and with IV Contrast, Oral contrast used: None FINDINGS: ARTERIAL VASCULATURE: No evidence for intramural hematoma of the thoracic or abdominal aorta. The asc ending thoracic aorta is within normal limits for size. The origins of the great vessels are patent. The descending thoracic aorta is within normal limits for size. The abdominal aorta and its major bra nches are patent. There are 2 left renal arteries. No evidence for intimal flap to suggest dissection . PULMONARY ARTERIAL VASCULATURE: Normal caliber. No evidence of filling defect to suggest pulmonary em bolus. VENOUS SYSTEM: Unremarkable Lungs/pleura: The lung parenchyma appears unremarkable. Heart: Within normal limits. Mediastinum: No gross evidence of adenopathy. Lower Neck: No significant findings. Abdomen: Liver: Unremarkable. Gallbladder and Bile ducts: There is gallbladder wall thickening measuring up to 4 mm. The common yuliana t is dilated up to 7 mm. Pancreas: Unremarkable. Spleen: Unremarkable. Adrenal glands: Unremarkable. Kidneys and Ureters: Unremarkable. No hydronephrosis. Bladder: Unremarkable. Reproductive: Unremarkable. Stomach and Bowel: Second portion duodenal diverticulum. No evidence of bowel obstruction. Peritoneum: No evidence of pneumoperitoneum, free fluid, or adenopathy. Musculoskeletal: The osseous structures appear intact. Lymph nodes: No evidence of lymphadenopathy. Abdominal wall/soft tissues: Unremarkable. IMPRESSION: 1. No evidence for thoracic aortic dissection No evidence for aortic aneurysm. 2. Common bile duct dilation in the setting of gallbladder distention with gallbladder wall thickenin g is concerning for acute cholecystitis. Consider HIDA scan.
[2022-11-17] MEDS ORDERED: HYDROmorphone 1 MG/ML 1 ML SYRINGE IVP STA (18:58)
[2022-11-17] MEDS ORDERED: PIPERACILLIN-TAZOBACTAM 3.375 GM in SODIUM CHLORIDE 0.9% 100 ML IVPB STA (19:02)
[2022-11-17] MEDS ORDERED: ACETAMINOPHEN TAB 325 MG TAB PO PRN (19:09)
[2022-11-17] MEDS ORDERED: HYDROmorphone 1 MG/ML 1 ML SYRINGE IVP PRN (19:09)
[2022-11-17] MEDS ORDERED: NALOXONE 0.4 MG/ML 1 ML VIAL IV PRN (19:09)
[2022-11-17] MEDS ORDERED: ONDANSETRON 4 MG/2 ML VIAL IVP PRN (19:09)
[2022-11-17] MEDS: SODIUM CHLORIDE 0.9% 1,000 ML IV SCH (19:56)
[2022-11-18] MEDS: SODIUM CHLORIDE 0.9% 1,000 ML IV SCH ×3 (02:33→20:27)
[2022-11-18] MEDS: PIPERACILLIN-TAZOBACTAM 3.375 GM in SODIUM CHLORIDE 0.9% 100 ML IVPB SCH ×3 (03:49→20:27)
--- NOTE | 2022-11-18 03:49 | P.CONS ---
History of Present Illness - Reason for Consult Consult date: 11/17/22 medical mangement - Chief Complaint abd pain - History of Present Illness 52 year old female with intermittent asthma patient coming in with sudden onset severe sharp pain of the RUQ that started suddenly today and woke her up from after noon nap as she was not feeling well., associated with nausea and vomiting of bilious vomitus . no bleeding, no diarrhea no fever, positive chills. she never had anything similar , she claims to have been in good health , she admits to social alcohol drinking , vaping nicotine and smoking marijuana she reports RUQ and epigastric sharp pain radiates to the back 8/10 in severity , poor appetite . she never had any gall bladder or pancrease problems , denies history of ulcer Review of Systems Pertinent positives as noted in HPI. All other systems were reviewed and are negative Past Medical History Past Medical History: Asthma History of Any Multi-Drug Resistant Organisms: None Reported Past Surgical History: Section, Tonsillectomy Past Psychological History: Depression Past Alcohol Use History: Occasional Past Drug Use History: Marijuana Medications and Allergies Home Medications Medication Instructions Recorded Confirmed Type PARoxetine [Paxil] 10 mg PO DIRECTED 10/16/18 11/17/22 History Cholecalciferol [Vitamin D3 (25 50 mcg PO DAILY 11/17/22 11/17/22 History Mcg = 1000 Iu)] Vitamin E (Dl,Tocopheryl Acet) 400 unit PO DAILY 11/17/22 11/17/22 History [Vitamin E (400 Iu = 180 mg)] Allergies Allergy/AdvReac Type Severity Reaction Status Date / Time Iodinated Contrast Media Allergy Anaphylaxis Verified 11/17/22 17:16 [Iodinated Contrast- Oral and IV Dye] morphine Allergy Itching Verified 11/17/22 17:16 shellfish derived [Shellfish] Allergy Anaphylaxis Verified 11/17/22 17:16 Physical Exam Vitals: Vital Signs Temp Pulse Resp BP Pulse Ox 11/17/22 19:52 85 16 124/66 95 11/17/22 18:00 77 20 145/79 100 11/17/22 17:30 81 20 155/86 99 11/17/22 17:00 96 20 133/99 100 11/17/22 16:27 98.1 F 82 16 85/60 100 Intake and Output 04/05/23 04/05/23 04/05/23 06:59 14:59 22:59 Other: Weight 70.307 kg Constitutional: No acute distress, conversant, pleasant Eyes: Anicteric sclerae, moist conjunctiva, Pupils equal round reactive to light ENMT: NC/AT Oropharynx clear, no erythema, or exudates Neck: Supple, no masses, or JVD No carotid bruits No thyromegaly Lungs: Clear to auscultation Clear to percussion Normal respiratory effort, no accessory muscle use Cardiovascular: Heart regular in rate and rhythm, No murmurs, gallops, or rubs No peripheral edema Abdominal: Soft tender to deep palpation of the RUQ and positive jones sign , no guarding, rebound or rigidity Abdomen moving with respiration Normoactive bowel sounds No hepatomegaly, No splenomegaly No palpable mass No abdominal wall hernia noted Skin: Normal temperature, tone, texture, turgor No induration No subcutaneous nodules No rash, lesions No ulcers Extremities: No digital cyanosis No clubbing Pedal pulses intact and symmetrical Radial pulses intact and symmetrical No calf tenderness Psychiatric: Alert and oriented to person, place and time Appropriate affect fair judgment Neuro Muscles Strength 5/5 in all 4 extremities Sensation to light touch grossly present throughout Cranial nerves II-XII grossly intact Lymphatics: no palpable cervical or supraclavicular lymph nodes Results CBC & Chem 7: 11/17/22 16:37 11/17/22 16:37 Labs: Abnormal Lab Results - Last 24 Hours (Table) 11/17/22 Range/Units 16:37 Carbon Dioxide 21 L (22-30) mmol/L Glucose 111 H (74-99) mg/dL Lipase 534 H (23-300) U/L Assessment and Plan Assessment: acute cholecystitis mangement per gen surgery follow up cultures continue zosyn 3.375 ivpb TID pain control with opiades IVF hydration with normal saline 130 cc per hour NPO liver enzymes unremarkable AST 24 , ALT 14 , alkphos 77 trops negative X2 lipase 534 gall bladder US , showed a distended gall bladder with sludge full code DVT PPX hepairn sc tid 5000 units thank you for this consultation will continue to follow up with you
[2022-11-18 06:06] LABS: Basophils % (A) 0 %; Eosinophils % (A) 0 %; HCT 39.7 % (34.0-46.0); HGB 13.2 gm/dL (11.4-16.0); Lymphocytes # (A) 0.6 k/uL (1.0-4.8); Lymphocytes % (A) 6 %; MCH 34.1 pg (25.0-35.0); MCHC 33.2 g/dL (31.0-37.0); MCV 102.7 fL (80.0-100.0); Macrocytosis Slight; Mean Platelet Volume 7.7; Monocytes # (A) 0.3 k/uL (0-1.0); Monocytes % (A) 3 %; Neutrophils # (A) 8.2 k/uL (1.3-7.7); Neutrophils % (A) 90 %; Platelet Count 285 k/uL (150-450); RBC 3.87 m/uL (3.80-5.40); RDW 13.3 % (11.5-15.5); WBC 9.1 k/uL (3.8-10.6)
[2022-11-18 09:11] LABS: ALT 50 U/L (4-34); AST 62 U/L (14-36); African American GFR (CKD) >90 (>60 ml/min/1.73 sqM); Albumin 3.7 g/dL (3.5-5.0); Albumin/Globulin Ratio 1.5; Alkaline Phosphatase 52 U/L (38-126); Anion Gap 9 mmol/L; Blood Urea Nitrogen 11 mg/dL (7-17); Calcium 9.1 mg/dL (8.4-10.2); Carbon Dioxide 24 mmol/L (22-30); Chloride 107 mmol/L (98-107); Globulin 2.4 g/dL; Glucose 129 mg/dL (74-99); Non-African American GFR(CKD) >90 (>60 ml/min/1.73 sqM); Sodium 140 mmol/L (137-145); Total Bilirubin 0.8 mg/dL (0.2-1.3); Total Protein 6.1 g/dL (6.3-8.2)
[2022-11-18] MEDS: HEPARIN SODIUM,PORCINE/PF 5,000 UNIT/0.5 ML SYRINGE SQ SCH ×3 (10:34→23:44)
[2022-11-18] MEDS: PARoxetine 10 MG TAB PO SCH (13:34)
--- NOTE | 2022-11-18 14:02 | P.CONS ---
History of Present Illness - Reason for Consult Consult date: 11/18/22 Gallstone pancreatitis, acute cholecystitis Requesting physician: Tha Mckee - Chief Complaint Right upper quadrant pain - History of Present Illness This is a pleasant 52-year-old female who presented to the emergency department with complaints of right upper quadrant and epigastric pain. Pain started yesterday increasingly Intense associated with nausea and vomiting. Patient had a ultrasound of the gallbladder is part of her workup which reported distended gallbladder with biliary sludge suggested. No evidence for wall thickening, pericholecystic fluid or positive sonographic Russ sign to suggest acute cholecystitis. no gallstones, mild CBD dilation at 0.6 cm. She further had a CT angiogram thoracic aorta pelvis which reported no evidence of thoracic aortic dissection no evidence for aortic aneurysm. Common bile duct dilation setting of gallbladder distention with gallbladder wall thickening concerning for acute cholecystitis. Consider HIDA scan. Admitting labs WBC 10 hemoglobin 14.6 hematocrit 43 platelet count 370,009 or 0.9 total bilirubin 0.6 AST 24 ALT 19 alkaline phosphatase of 47 lipase 534. Patient states abdominal pain is somewhat improved, however scrubber machine tender to palpation. No further nausea or vomiting at this time. She has been afebrile. She is on Zosyn. She has tentatively scheduled with general surgery for a ch olecystectomy. Today's labs WBC 9 hemoglobin 13 platelet count 285,000 total bilirubin 0.8 AST 62 ALT 50 alkaline phosphatase 52 lipase 37 Review of Systems REVIEW OF SYSTEMS: CARDIOPULMONARY: No chest pain or shortness of breath. Gastrointestinal: Right upper quadrant and epigastric pain, associated with nausea and vomiting. No hematemesis, coffee-ground emesis. No rectal bleeding, or melena. GENITOURINARY: No dysuria or hematuria. MUSCULOSKELETAL: Reports normal range of motion. Joint pain. SKIN: No rashes. No jaundice. ENDOCRINE: No chills, fevers. No excessive weight gain or loss. No polydipsia or polyuria. PSYCHIATRIC: Unremarkable. NEUROLOGY: No change in mental status. Denies dizziness, headache. ENT: Vision unremarkable. CONSTITUTIONAL: No recent weight loss. No fever, chills, night sweats. Past Medical History Past Medical History: Asthma History of Any Multi-Drug Resistant Organisms: None Reported Past Surgical History: Section, Tonsillectomy Additional Past Surgical History / Comment(s): Tubal Past Anesthesia/Blood Transfusion Reactions: No Reported Reaction Past Psychological History: Depression Smoking Status: Vaper Past Alcohol Use History: Occasional Past Drug Use History: Marijuana Medications and Allergies Home Medications Medication Instructions Recorded Confirmed Type PARoxetine [Paxil] 10 mg PO DIRECTED 10/16/18 11/17/22 History Cholecalciferol [Vitamin D3 (25 50 mcg PO DAILY 11/17/22 11/17/22 History Mcg = 1000 Iu)] Vitamin E (Dl,Tocopheryl Acet) 400 unit PO DAILY 11/17/22 11/17/22 History [Vitamin E (400 Iu = 180 mg)] Allergies Allergy/AdvReac Type Severity Reaction Status Date / Time Iodinated Contrast Media Allergy Anaphylaxis Verified 11/17/22 17:16 [Iodinated Contrast- Oral and IV Dye] morphine Allergy Itching Verified 11/17/22 17:16 shellfish derived [Shellfish] Allergy Anaphylaxis Verified 11/17/22 17:16 Physical Exam Vitals: Vital Signs Temp Pulse Pulse Resp BP BP Pulse Ox 11/18/22 07:45 98.6 F 75 18 153/78 97 11/18/22 06:53 60 16 115/71 98 11/18/22 04:10 65 16 11/18/22 03:16 62 16 104/68 96 11/17/22 23:59 69 16 111/63 97 11/17/22 23:20 72 18 110/68 99 11/17/22 22:17 67 18 95/50 100 11/17/22 21:49 66 18 114/64 98 11/17/22 19:52 85 16 124/66 95 11/17/22 18:00 77 20 145/79 100 11/17/22 17:30 81 20 155/86 99 11/17/22 17:00 96 20 133/99 100 11/17/22 16:27 98.1 F 82 16 85/60 100 Intake and Output 11/17/22 11/18/22 11/18/22 22:59 06:59 14:59 Other: Weight 70.307 kg 70.307 kg General appearance: The patient is alert, oriented, appears in no acute distress. HET: Head is normocephalic and atraumatic. Conjunctiva pink. Sclera anicteric. Neck: Supple.. Trachea midline. Heart: S1 S2. Regular rate and rhythm. Lungs: Clear to auscultation. Abdomen: Soft, tender to palpation right upper quadrant, nondistended with bowel sounds. No guarding or rigidity. Skin: No rashes. No jaundice. Extremities: Normal skin color and turgor. No pedal edema. Neurological: No focal deficits. Alert and oriented x3. Results CBC & Chem 7: 11/18/22 05:01 11/18/22 08:04 Labs: Abnormal Lab Results - Last 24 Hours (Table) 11/17/22 11/18/22 Range/Units 16:37 05:01 MCV 102.7 H (80.0-100.0) fL Neutrophils # 8.2 H (1.3-7.7) k/uL Lymphocytes # 0.6 L (1.0-4.8) k/uL Carbon Dioxide 21 L (22-30) mmol/L Glucose 111 H (74-99) mg/dL Lipase 534 H (23-300) U/L Assessment and Plan (1) Right upper quadrant pain Narrative/Plan: 52-year-old female presented with right upper quadrant and epigastric pain with workup concerning for possible acute cholecystitis. Gastroenterology was consulted for gallstone pancreatitis, CT reporting mild CBD dilation at 0.7 cm. No gallstones noted in either gallbladder ultrasound or CT angiogram. LFTs without cholestatic pattern. Unlikely CBD obstruction. Discussed with general surgery no further workup from GI at this time. May proceed with cholecystectomy as scheduled. Current Visit: Yes Status: Acute Code(s): R10.11 - RIGHT UPPER QUADRANT PAIN SNOMED Code(s): 596535428 (2) Acute cholecystitis Current Visit: Yes Status: Acute Code(s): K81.0 - ACUTE CHOLECYSTITIS SNOMED Code(s): 17554271 Plan: 1. Continue symptomatic and supportive care 2. Diet per recommendations from general surgery 3. Gallbladder ultrasound, CTA, labs reviewed with Dr. Gonzales 4. No indications for further workup from gastroenterology, with no plans for ERCP 5. Continue with recommendations from general surgery 6. Repeat CMP tomorrow Thank you for this consultation, we will continue to follow. Dr. Eugenio Gonzales I agree with the dictator's note, documented as a scribe by Angeli Pickering.
[2022-11-18] MEDS ORDERED: IV FLUID CONTINUATION 1,000 ML IV ONE (14:23)
[2022-11-18] MEDS ORDERED: ONDANSETRON 4 MG/2 ML VIAL IVP ONE (14:33)
[2022-11-18] MEDS ORDERED: DEXAMETHASONE SOD PHOSPHATE 4 MG/ML 1 ML VIAL IVP ONE (14:33)
[2022-11-18] MEDS ORDERED: HEPARIN SODIUM,PORCINE 5,000 UNIT/ML 1 ML VIAL SQ ONE (14:48)
[2022-11-18] MEDS ORDERED: MIDAZOLAM 2 MG/2 ML VIAL IVP ONE (14:49)
--- NOTE | 2022-11-18 14:59 | P.GSHP ---
History of Present Illness H&P Date: 11/18/22 Chief Complaint: Acute calculus cholecystitis 52-year-old female presents to the ER last night with complaints of right upper quadrant pain radiating to the mid abdomen. Pain began the day prior. Symptoms associated with nausea and vomiting. No change in the color of her skin urine or stool. Labs showed an elevated lipase level. Repeat lipase today was normal. Liver enzymes were normal yesterday. Today's ALT and AST slightly elevated. She underwent a CT angiogram of the chest abdomen and pelvis negative for dissection. Mild CBD dilation at 7 mm seen. Gallbladder wall thickening also seen. Ultrasound showed gallbladder sludge. She had a positive Russ sig n reportedly. Patient was still having abdominal pain and admitted for that reason. She has been seen by GI who agrees that likelihood of choledocholithiasis currently is low. - Review of Systems Comment: The patient denies any acute changes in vision or hearing, no dysphagia or odynophagia, no chest pain or shortness of breath, no dysuria or hematuria, no headache, no runny nose, no rectal bleeding or melena, no unexplained weight loss Past Medical History Past Medical History: Asthma History of Any Multi-Drug Resistant Organisms: None Reported Past Surgical History: Section, Tonsillectomy Additional Past Surgical History / Comment(s): Tubal Past Anesthesia/Blood Transfusion Reactions: No Reported Reaction Past Psychological History: Depression Smoking Status: Vaper Past Alcohol Use History: Occasional Past Drug Use History: Marijuana Medications and Allergies Home Medications Medication Instructions Recorded Confirmed Type PARoxetine [Paxil] 10 mg PO DIRECTED 10/16/18 11/17/22 History Cholecalciferol [Vitamin D3 (25 50 mcg PO DAILY 11/17/22 11/17/22 History Mcg = 1000 Iu)] Vitamin E (Dl,Tocopheryl Acet) 400 unit PO DAILY 11/17/22 11/17/22 History [Vitamin E (400 Iu = 180 mg)] Allergies Allergy/AdvReac Type Severity Reaction Status Date / Time Iodinated Contrast Media Allergy Anaphylaxis Verified 11/18/22 14:34 [Iodinated Contrast- Oral and IV Dye] morphine Allergy Itching Verified 11/18/22 14:34 shellfish derived [Shellfish] Allergy Anaphylaxis Verified 11/18/22 14:34 Surgical - Exam Vital Signs Temp Pulse Resp BP Pulse Ox 98.1 F 82 16 85/60 100 11/17/22 16:27 11/17/22 16:27 11/17/22 16:27 11/17/22 16:27 11/17/22 16:27 Physical exam: General: Well-developed, well-nourished HEENT: Normocephalic, sclerae nonicteric Abdomen: Mild right upper quadrant tenderness, nondistended Extremities: No edema Neuro: Alert and oriented Results - Labs 11/18/22 05:01 11/18/22 08:04 Abnormal Lab Results - Last 24 Hours (Table) 11/17/22 11/18/22 11/18/22 Range/Units 16:37 05:01 08:04 MCV 102.7 H (80.0-100.0) fL Neutrophils # 8.2 H (1.3-7.7) k/uL Lymphocytes # 0.6 L (1.0-4.8) k/uL Carbon Dioxide 21 L (22-30) mmol/L Glucose 111 H 129 H (74-99) mg/dL AST 62 H (14-36) U/L ALT 50 H (4-34) U/L Total Protein 6.1 L (6.3-8.2) g/dL Lipase 534 H (23-300) U/L Diabetes panel 11/17/22 11/18/22 Range/Units 16:37 08:04 Sodium 139 140 (137-145) mmol/L Potassium 3.6 4.0 (3.5-5.1) mmol/L Chloride 104 107 (98-107) mmol/L Carbon Dioxide 21 L 24 (22-30) mmol/L BUN 12 11 (7-17) mg/dL Creatinine 0.69 0.68 (0.52-1.04) mg/dL Glucose 111 H 129 H (74-99) mg/dL Calcium 10.2 9.1 (8.4-10.2) mg/dL AST 24 62 H (14-36) U/L ALT 19 50 H (4-34) U/L Alkaline Phosphatase 77 52 (38-126) U/L Total Protein 7.1 6.1 L (6.3-8.2) g/dL Albumin 4.6 3.7 (3.5-5.0) g/dL Calcium panel 11/17/22 11/18/22 Range/Units 16:37 08:04 Calcium 10.2 9.1 (8.4-10.2) mg/dL Albumin 4.6 3.7 (3.5-5.0) g/dL Pituitary panel 11/17/22 11/18/22 Range/Units 16:37 08:04 Sodium 139 140 (137-145) mmol/L Potassium 3.6 4.0 (3.5-5.1) mmol/L Chloride 104 107 (98-107) mmol/L Carbon Dioxide 21 L 24 (22-30) mmol/L BUN 12 11 (7-17) mg/dL Creatinine 0.69 0.68 (0.52-1.04) mg/dL Glucose 111 H 129 H (74-99) mg/dL Calcium 10.2 9.1 (8.4-10.2) mg/dL Adrenal panel 11/17/22 11/18/22 Range/Units 16:37 08:04 Sodium 139 140 (137-145) mmol/L Potassium 3.6 4.0 (3.5-5.1) mmol/L Chloride 104 107 (98-107) mmol/L Carbon Dioxide 21 L 24 (22-30) mmol/L BUN 12 11 (7-17) mg/dL Creatinine 0.69 0.68 (0.52-1.04) mg/dL Glucose 111 H 129 H (74-99) mg/dL Calcium 10.2 9.1 (8.4-10.2) mg/dL Total Bilirubin 0.6 0.8 (0.2-1.3) mg/dL AST 24 62 H (14-36) U/L ALT 19 50 H (4-34) U/L Alkaline Phosphatase 77 52 (38-126) U/L Total Protein 7.1 6.1 L (6.3-8.2) g/dL Albumin 4.6 3.7 (3.5-5.0) g/dL Assessment and Plan (1) Gallbladder calculus with acute cholecystitis Narrative/Plan: 52-year-old female with acute calculus cholecystitis. Remains possible that gallstone pancreatitis was the primary etiology for her presentation. Labs and history do not suggest a persistent common bile duct stone. Options reviewed with patient and family in detail. Case was also reviewed with GI earlier today. We have decided to proceed with laparoscopic, possible open cholecystectomy at this time. If postoperatively we are suspicious for choledocholithiasis Will perform either MRCP or ERCP at that time. Risks of bleeding, infection, bile leak, bile duct injury, retained common bile duct stone, trocar injury, conversion to an open procedure, hernia, anesthesia related complications were reviewed. The patient understands and wishes to proceed. Current Visit: Yes Status: Acute Code(s): K80.00 - CALCULUS OF GALLBLADDER W ACUTE CHOLECYST W/O OBSTRUCTION SNOMED Code(s): 19811050
[2022-11-18] MEDS ORDERED: SUCCINYLCHOLINE CHLORIDE 200 MG/10 ML VIAL IV ONE (15:03)
[2022-11-18] MEDS ORDERED: LIDOCAINE 2% INJ 20 MG/ML (2 ML VIAL) ONE (15:03)
[2022-11-18] MEDS ORDERED: fentaNYL (PF) 50 MCG/ML 2 ML AMP ONE (15:03)
[2022-11-18] MEDS ORDERED: GLYCOPYRROLATE 0.2 MG/ML 2 ML VIAL ONE (15:03)
[2022-11-18] MEDS ORDERED: MIDAZOLAM 2 MG/2 ML VIAL ONE (15:03)
[2022-11-18] MEDS ORDERED: HYDROmorphone (PF) 1 MG/ML ONE (15:03)
[2022-11-18] MEDS ORDERED: LABETALOL 5 MG/ML VIAL MDV ONE (15:03)
[2022-11-18] MEDS ORDERED: PHENYLEPHRINE-0.9% NACL SYG 1,000 MCG/10 ML SYRINGE ONE (15:03)
[2022-11-18] MEDS ORDERED: NEOSTIGMINE 1 MG/ML 10 ML VIAL ONE (15:03)
[2022-11-18] MEDS ORDERED: PROPOFOL 10 MG/ML 20 ML VIAL IV ONE (15:03)
[2022-11-18] MEDS ORDERED: KETOROLAC 15 MG/ML 1 ML VIAL ONE (15:03)
[2022-11-18] MEDS ORDERED: ROCURONIUM 10 MG/ML (5 ML VIAL) IV ONE (15:03)
[2022-11-18] MEDS ORDERED: BUPIVACAIN-EPI 0.25%-1:200,000 30 ML VIAL SQ ONE (15:36)
--- NOTE | 2022-11-18 16:30 | P.OP ---
Date of Procedure: 11/18/22 Procedure(s) Performed: PREOPERATIVE DIAGNOSIS: Acute calculus cholecystitis POSTOPERATIVE DIAGNOSIS: Same, small vocal hernia PROCEDURE: Laparoscopic cholecystectomy SURGEON: Marcus EBL: Minimal see anesthesia record ANESTHESIA: Gen. COMPLICATIONS: None OPERATIVE PROCEDURE: The patient was brought and placed on the operating room table in the supine position. The patient was placed under general anesthesia at that time. The abdomen was prepped and draped in the usual sterile fashion. A small curvilinear infraumbilical incision was made. Of note the patient did have a small umbilical hernia containing fat that was not addressed at this time. The fascia was grasped with the Abdulaziz forceps. The fascia was retracted anteriorly. The Veress needle was advanced into the peritoneal cavity. The saline drop test was normal. Insufflation took place up to 15 mmHg. A 5 mm optical trocar was advanced and the peritoneal cavity. 2 additional 5 mm trochars were placed in the right upper quadrant under direct visualization. A 12 mm trocar was advanced into the epigastric incision site. The gallbladder was acutely inflamed with a thickened gallbladder wall. The gallbladder was retracted superiorly and laterally. The peritoneum overlying the infundibulum was bluntly dissected. The patient's cystic duct was visualized. The junction between the cystic duct common and hepatic duct was identified. The critical view of safety was achieved after blunt dissection. The cystic duct was then di vided after placement of 3 12 mm clips on the patient's side and one on the specimen side. The cystic artery was identified and clipped as well. A small vessel was seen along the gallbladder fossa and clipped as well. The gallbladder was then removed from the liver bed using electrocautery. In the course of removing the gallbladder from the gallbladder wall a small pinhole in the posterior wall of the gallbladder was noted. Pus was seen emanating from that opening. The suction device was used to evacuate further purulence from the gallbladder lumen. The gallbladder was then removed from the epigastric trocar site with an Endo Catch bag. The gallbladder fossa was irrigated with saline. There was no evidence of any bleeding or biliary drainage seen. The fascia at the 12 millimeter site was closed using a Aleksander-Vesna 0 Vicryl stitch. The trochars were then removed. The skin at all 4 sites was closed using a 4-0 Monocryl stitch. Skin glue was utilized on the incision sites. At the end of this procedure the sponge and needle counts were correct. DISPOSITION: Stable to the recovery room
[2022-11-18] MEDS: HYDROcodone/APAP 5-325MG 1 EACH TAB PO PRN (20:28)
[2022-11-18] MEDS: HYDROmorphone 0.5 MG/0.5 ML SYRINGE IVP PRN (23:47)
[2022-11-19] MEDS: HYDROmorphone 0.5 MG/0.5 ML SYRINGE IVP PRN ×5 (03:42→20:44)
[2022-11-19] MEDS: PIPERACILLIN-TAZOBACTAM 3.375 GM in SODIUM CHLORIDE 0.9% 100 ML IVPB SCH ×3 (03:43→20:43)
[2022-11-19] MEDS: SODIUM CHLORIDE 0.9% 1,000 ML IV SCH ×3 (03:43→18:20)
[2022-11-19] MEDS: HYDROcodone/APAP 5-325MG 1 EACH TAB PO PRN ×2 (06:55→18:18)
[2022-11-19 07:17] LABS: HCT 35.8 % (34.0-46.0); HGB 11.9 gm/dL (11.4-16.0); MCH 34.7 pg (25.0-35.0); MCHC 33.2 g/dL (31.0-37.0); MCV 104.6 fL (80.0-100.0); Macrocytosis Slight; Mean Platelet Volume 7.5; Platelet Count 281 k/uL (150-450); RBC 3.43 m/uL (3.80-5.40); RDW 12.9 % (11.5-15.5); WBC 11.3 k/uL (3.8-10.6)
[2022-11-19 07:25] LABS: ALT 64 U/L (4-34); AST 56 U/L (14-36); African American GFR (CKD) >90 (>60 ml/min/1.73 sqM); Albumin 3.3 g/dL (3.5-5.0); Albumin/Globulin Ratio 1.5; Alkaline Phosphatase 48 U/L (38-126); Anion Gap 4 mmol/L; Blood Urea Nitrogen 14 mg/dL (7-17); Calcium 8.7 mg/dL (8.4-10.2); Carbon Dioxide 27 mmol/L (22-30); Chloride 107 mmol/L (98-107); Globulin 2.2 g/dL; Glucose 107 mg/dL (74-99); Non-African American GFR(CKD) 90 (>60 ml/min/1.73 sqM); Potassium 4.1 mmol/L (3.5-5.1); Sodium 138 mmol/L (137-145); Total Bilirubin 0.6 mg/dL (0.2-1.3); Total Protein 5.5 g/dL (6.3-8.2)
[2022-11-19] MEDS: CHOLECALCIFEROL 25 MCG (1000 IU) TABLET PO SCH (08:37)
[2022-11-19] MEDS: VITAMIN E (DL,TOCOPHERYL ACET) 400 UNIT (180 MG) CAP PO SCH (08:38)
[2022-11-19] MEDS: HEPARIN SODIUM,PORCINE/PF 5,000 UNIT/0.5 ML SYRINGE SQ SCH ×3 (08:38→20:44)
[2022-11-19] MEDS: PARoxetine 10 MG TAB PO SCH (08:38)
--- NOTE | 2022-11-19 15:05 | P.PN ---
Subjective Progress Note Date: 11/19/22 Principal diagnosis: Cholecystitis This is a pleasant 52-year-old female who presented to the emergency department with complaints of right upper quadrant and epigastric pain. Pain started yesterday increasingly Intense associated with nausea and vomiting. Patient had a ultrasound of the gallbladder is part of her workup which reported distended gallbladder with biliary sludge suggested. No evidence for wall thickening, pericholecystic fluid or positive sonographic Russ sign to suggest acute cholecystitis. no gallstones, mild CBD dilation at 0.6 cm. She further had a CT angiogram thoracic aorta pelvis which reported no evidence of thoracic aortic dissection no evidence for aortic aneurysm. Common bile duct dilation setting of gallbladder distention with gallbladder wall thickening concerning for acute cholecystitis. Consider HIDA scan. Admitting labs WBC 10 hemoglobin 14.6 hematocrit 43 platelet count 370,009 or 0.9 total bilirubin 0.6 AST 24 ALT 19 alkaline phosphatase of 47 lipase 534. Patient states abdominal pain is somewhat improved, however shaker tender to palpation. No further nausea or vomiting at this time. She has been afebrile. She is on Zosyn. She has tentatively scheduled with general surgery for a cholecystectomy. Today's labs WBC 9 hemoglobin 13 platelet count 285,000 total bilirubin 0.8 AST 62 ALT 50 alkaline phosphatase 52 lipase 37 11/19/2022: Patient seen and examined today as a follow-up. Yesterday she underwent cholecystectomy with Dr. Velazquez. States she's having some epigastric and surgical tenderness. No nausea or vomiting. Repeat labs total bilirubin 0.6 AST 56 ALT 64 alkaline phosphatase 48 Objective - Vital Signs Vital signs: Vital Signs Temp 98.6 F 11/19/22 06:38 Pulse 85 11/19/22 06:38 Resp 15 11/19/22 06:38 BP 110/82 11/19/22 06:38 Pulse Ox 93 L 11/19/22 06:38 FiO2 Intake & Output 11/18/22 11/18/22 11/19/22 06:59 18:59 06:59 Intake Total 1200 Output Total 5 Balance 1195 Weight 70.307 kg Intake: IV 1200 Output: Estimated Blood Loss 5 Other: # Voids 0 2 - Exam General appearance: The patient is alert, oriented, appears in no acute distress. HET: Head is normocephalic and atraumatic. Conjunctiva pink. Sclera anicteric. Neck: Supple without lymphadenopathy. Abdomen: Soft, surgical tenderness, surgical sites clean dry and intact. No guarding or rigidity. Extremities: Normal skin color and turgor. No pedal edema Skin: No rashes, no jaundice Neurological: No focal deficits. Alert and oriented. - Labs CBC & Chem 7: 11/19/22 07:02 11/19/22 07:02 Labs: Abnormal Lab Results - Last 24 Hours (Table) 11/18/22 Range/Units 08:04 Glucose 129 H (74-99) mg/dL AST 62 H (14-36) U/L ALT 50 H (4-34) U/L Total Protein 6.1 L (6.3-8.2) g/dL Assessment and Plan (1) Right upper quadrant pain Narrative/Plan: 52-year-old female presented with right upper quadrant and epigastric pain with workup concerning for possible acute cholecystitis. Gastroenterology was consulted for gallstone pancreatitis, CT reporting mild CBD dilation at 0.7 cm. No gallstones noted in either gallbladder ultrasound or CT angiogram. LFTs without cholestatic pattern. Unlikely CBD obstruction. Discussed with general surgery no further workup from GI at this time. May proceed with cholecystectomy as scheduled. Current Visit: Yes Status: Acute Code(s): R10.11 - RIGHT UPPER QUADRANT PAIN SNOMED Code(s): 207343843 (2) Acute cholecystitis Narrative/Plan: Patient status post cholecystectomy with Gen. surgery Current Visit: Yes Status: Acute Code(s): K81.0 - ACUTE CHOLECYSTITIS SNOMED Code(s): 62828835 Plan: 1. Continue symptomatic and supportive care 2. Diet per recommendations from general surgery 3. CMP reviewed today, LFTs are trending down. 4. No indication for any further gastroenterology workup Thank you for this consultation, gastroenterology will sign off at this time. Dr. Eugenio Gonzales I agree with the dictator's note, documented as a scribe by Angeli Pickering.
--- NOTE | 2022-11-19 16:43 | P.PN ---
Subjective Progress Note Date: 11/19/22 Principal diagnosis: Acute cholecystitis Patient complaining of some soreness in the right upper abdomen. She says it is better than it was preoperatively. Her labs show leukocytosis at this time which is not surprising given the appearance of the gallbladder yesterday. She is afebrile. Some nausea this morning. Objective - Vital Signs Vital signs: Vital Signs Temp 98.1 F 11/19/22 14:00 Pulse 66 11/19/22 14:00 Resp 12 11/19/22 14:00 BP 119/66 11/19/22 14:00 Pulse Ox 95 11/19/22 14:00 FiO2 Intake & Output 11/18/22 11/19/22 11/19/22 18:59 06:59 18:59 Intake Total 1200 Output Total 5 Balance 1195 Weight 70.307 kg Intake: IV 1200 Output: Estimated Blood Loss 5 Other: # Voids 0 2 - Exam Abdomen: Soft, mild right upper quadrant tenderness, incisions clean and dry - Labs CBC & Chem 7: 11/19/22 07:02 11/19/22 07:02 Labs: Abnormal Lab Results - Last 24 Hours (Table) 11/19/22 11/19/22 11/19/22 Range/Units 07:02 07:02 07:02 WBC 11.3 H (3.8-10.6) k/uL RBC 3.43 L (3.80-5.40) m/uL MCV 104.6 H (80.0-100.0) fL Glucose 107 H (74-99) mg/dL AST 56 H (14-36) U/L ALT 64 H (4-34) U/L Total Protein 5.5 L (6.3-8.2) g/dL Albumin 3.3 L (3.5-5.0) g/dL Procalcitonin 0.14 H (0.02-0.09) ng/mL Assessment and Plan (1) Gallbladder calculus with acute cholecystitis Narrative/Plan: Patient doing fairly well after lap scopic cholecystectomy yesterday for acute cholecystitis with purulent gallbladder. Gradually advance diet. Continue analgesics. Continue IV antibiotics. Probable discharge tomorrow. Current Visit: Yes Status: Acute Code(s): K80.00 - CALCULUS OF GALLBLADDER W ACUTE CHOLECYST W/O OBSTRUCTION SNOMED Code(s): 95100742
--- NOTE | 2022-11-19 17:11 | P.PN ---
Subjective Progress Note Date: 11/19/22 "52 year old female with intermittent asthma patient coming in with sudden onset severe sharp pain of the RUQ that started suddenly today and woke her up from after noon nap as she was not feeling well., associated with nausea and vomiting of bilious vomitus . no bleeding, no diarrhea no fever, positive chills. she never had anything similar , she claims to have been in good health , she admits to social alcohol drinking , vaping nicotine and smoking marijuana she reports RUQ and epigastric sharp pain radiates to the back 8/10 in severity , poor appetite . she never had any gall bladder or pancrease problems , denies history of ulcer" No new systemic symptoms continues to have postop pain with some nausea Objective - Vital Signs Vital signs: Vital Signs Temp 98.1 F 11/19/22 14:00 Pulse 66 11/19/22 14:00 Resp 12 11/19/22 14:00 BP 119/66 11/19/22 14:00 Pulse Ox 95 11/19/22 14:00 FiO2 Intake & Output 11/18/22 11/19/22 11/19/22 18:59 06:59 18:59 Intake Total 1200 Output Total 5 Balance 1195 Weight 70.307 kg Intake: IV 1200 Output: Estimated Blood Loss 5 Other: # Voids 0 2 - Exam Constitutional: No acute distress, conversant, pleasant Eyes: Anicteric sclerae, moist conjunctiva, Pupils equal round reactive to light ENMT: NC/AT Oropharynx clear, no erythema, or exudates Neck: Supple, no masses, or JVD No carotid bruits No thyromegaly Lungs: Clear to auscultation Clear to percussion Normal respiratory effort, no accessory muscle use Cardiovascular: Heart regular in rate and rhythm, No murmurs, gallops, or rubs No peripheral edema Abdominal: Soft Mild tenderness to deep palpation of the RUQ and positive jones sign , no guarding, rebound or rigidity Abdomen moving with respiration Normoactive bowel sounds No hepatomegaly, No splenomegaly No palpable mass No abdominal wall hernia noted Skin: Normal temperature, tone, texture, turgor No induration No subcutaneous nodules No rash, lesions No ulcers Extremities: No digital cyanosis No clubbing Pedal pulses intact and symmetrical Radial pulses intact and symmetrical No calf tenderness Psychiatric: Alert and oriented to person, place and time Appropriate affect fair judgment Neuro Muscles Strength 5/5 in all 4 extremities Sensation to light touch grossly present throughout Cranial nerves II-XII grossly intact Lymphatics: no palpable cervical or supraclavicular lymph nodes - Labs CBC & Chem 7: 11/19/22 07:02 11/19/22 07:02 Labs: Abnormal Lab Results - Last 24 Hours (Table) 11/19/22 11/19/22 11/19/22 Range/Units 07:02 07:02 07:02 WBC 11.3 H (3.8-10.6) k/uL RBC 3.43 L (3.80-5.40) m/uL MCV 104.6 H (80.0-100.0) fL Glucose 107 H (74-99) mg/dL AST 56 H (14-36) U/L ALT 64 H (4-34) U/L Total Protein 5.5 L (6.3-8.2) g/dL Albumin 3.3 L (3.5-5.0) g/dL Procalcitonin 0.14 H (0.02-0.09) ng/mL Assessment and Plan Assessment: Acute cholecystitis Mangement per gen surgery follow up cultures continue zosyn 3.375 ivpb TID pain control with opiates per General Surgery IVF hydration with normal saline On clear liquids per Gen. surgery liver enzymes unremarkable AST 24 , ALT 14 , alkphos 77 trops negative X2 lipase 534 down to 37 gall bladder US , showed a distended gall bladder with sludge full code DVT PPX hepairn sc tid 5000 units
[2022-11-20] MEDS: SODIUM CHLORIDE 0.9% 1,000 ML IV SCH ×2 (03:50→10:57)
[2022-11-20] MEDS: PIPERACILLIN-TAZOBACTAM 3.375 GM in SODIUM CHLORIDE 0.9% 100 ML IVPB SCH ×2 (04:05→11:26)
[2022-11-20] MEDS: HYDROmorphone 0.5 MG/0.5 ML SYRINGE IVP PRN (08:20)
[2022-11-20] MEDS: VITAMIN E (DL,TOCOPHERYL ACET) 400 UNIT (180 MG) CAP PO SCH (08:21)
[2022-11-20] MEDS: PARoxetine 10 MG TAB PO SCH (08:21)
[2022-11-20] MEDS: CHOLECALCIFEROL 25 MCG (1000 IU) TABLET PO SCH (08:21)
[2022-11-20] MEDS: HEPARIN SODIUM,PORCINE/PF 5,000 UNIT/0.5 ML SYRINGE SQ SCH (08:21)
[2022-11-20 08:43] LABS: Basophils % (A) 0 %; Eosinophils # (A) 0.1 k/uL (0-0.7); Eosinophils % (A) 1 %; HCT 38.2 % (34.0-46.0); HGB 12.6 gm/dL (11.4-16.0); Lymphocytes # (A) 1.5 k/uL (1.0-4.8); Lymphocytes % (A) 21 %; MCH 34.2 pg (25.0-35.0); MCHC 32.9 g/dL (31.0-37.0); Macrocytosis Slight; Mean Platelet Volume 7.7; Monocytes # (A) 0.7 k/uL (0-1.0); Monocytes % (A) 9 %; Neutrophils % (A) 67 %; Platelet Count 291 k/uL (150-450); RBC 3.67 m/uL (3.80-5.40); RDW 12.7 % (11.5-15.5); WBC 7.5 k/uL (3.8-10.6)
[2022-11-20 08:46] VITALS: BP 135/81; PULSE 70; RESP 18; TEMP 97.4
[2022-11-20 08:58] LABS: ALT 74 U/L (4-34); AST 61 U/L (14-36); African American GFR (CKD) >90 (>60 ml/min/1.73 sqM); Albumin 3.3 g/dL (3.5-5.0); Albumin/Globulin Ratio 1.4; Alkaline Phosphatase 50 U/L (38-126); Anion Gap 6 mmol/L; Blood Urea Nitrogen 8 mg/dL (7-17); Calcium 8.5 mg/dL (8.4-10.2); Carbon Dioxide 25 mmol/L (22-30); Chloride 108 mmol/L (98-107); Globulin 2.4 g/dL; Glucose 93 mg/dL (74-99); Non-African American GFR(CKD) >90 (>60 ml/min/1.73 sqM); Sodium 139 mmol/L (137-145); Total Bilirubin 0.5 mg/dL (0.2-1.3); Total Protein 5.7 g/dL (6.3-8.2)
--- NOTE | 2022-11-20 09:14 | P.DS ---
Providers Date of admission: 11/17/22 19:12 Expected date of discharge: 11/20/22 Attending physician: Derek Velazquez Consults: 11/17/22 19:09 Consult Physician Routine Consulting Provider: Saul Rebollar Consult Reason/Comments: Medical management Do you want consulting provider notified?: Yes Consult Physician Routine Consulting Provider: Pati Gonzales Consult Reason/Comments: Gallstone pancreatitis, acute cholecystitis Do you want consulting provider notified?: Yes 11/17/22 22:10 Consult Physician Routine Consulting Provider: Derek Velazquez Consult Reason/Comments: acute cholecystitis Do you want consulting provider notified?: Yes Primary care physician: Stated None - Discharge Diagnosis(es) (1) Gallbladder calculus with acute cholecystitis Patient was admitted with acute calculus cholecystitis. Intraoperatively patient was found have purulent fluid within the gallbladder. Patient doing better postoperatively. Pain is gradually lessening. She is tolerating diet today. No nausea at this time. She would like to go home today. We'll discharge. Follow-up as outpatient. We'll continue antibiotics postdischarge. Current Visit: Yes Status: Acute Patient Condition at Discharge: Stable Plan - Discharge Summary Discharge Rx Participant: Yes New Discharge Prescriptions: New HYDROcodone/APAP 5-325MG [[place] 5-325] 1 tab PO Q6HR PRN 3 Days #6 tab PRN Reason: Analgesia No Action PARoxetine [Paxil] 10 mg PO DIRECTED Cholecalciferol [Vitamin D3 (25 Mcg = 1000 Iu)] 50 mcg PO DAILY Vitamin E (Dl,Tocopheryl Acet) [Vitamin E (400 Iu = 180 mg)] 400 unit PO DAILY Discharge Medication List PARoxetine [Paxil] 10 mg PO DIRECTED 10/16/18 [History] Cholecalciferol [Vitamin D3 (25 Mcg = 1000 Iu)] 50 mcg PO DAILY 11/17/22 [His tory] Vitamin E (Dl,Tocopheryl Acet) [Vitamin E (400 Iu = 180 mg)] 400 unit PO DAILY 11/17/22 [History] HYDROcodone/APAP 5-325MG [[place] 5-325] 1 tab PO Q6HR PRN 3 Days #6 tab 11/18/22 [Rx] Follow up Appointment(s)/Referral(s): Derek Velazquez MD [Medical Doctor] - 2 Weeks None,Stated [Primary Care Provider] - 1-2 days Discharge/Stand Alone Forms: [facility] PCPs
[2022-11-20] MEDS: HYDROcodone/APAP 5-325MG 1 EACH TAB PO PRN (10:53)
--- NOTE | 2022-11-20 11:02 | P.PN ---
Subjective Progress Note Date: 11/20/22 Subjective: She is seen and examined at bedside. No acute events overnight. She claims that she has minimal abdominal tenderness, occasional nausea. However, she denies any other chest pain, shortness of breath, urinary or bowel complaints. Pertinent positives and negatives as discussed above, a complete review of systems was performed and all other systems are negative. Vitals Signs Reviewed. General: nontoxic, no distress, appears at stated age Derm: warm, dry, surgical incision sites appear clean, dry, intact Head: atraumatic, normocephalic, symmetric Eyes: EOMI, no lid lag, anicteric sclera Mouth: no lip lesion, mucus membranes moist Cardiovascular: S1S2 reg, no murmur Lungs: CTA bilateral, no rhonchi, no rales , no accessory muscle use Abdominal: soft, nontender to palpation, no guarding, no appreciable organomegaly Ext: no gross muscle atrophy, no edema, no contractures Neuro: CN II-XI grossly intact, no focal neuro deficits Psych: Alert, oriented, appropriate affect Data Reviewed Today: Pertinent Labs: WBC 7.5, hemoglobin 12.6, sodium 139, potassium 4, creatinine 0.68 Assessment and Plan: Active: Acute cholecystitis status post cholecystectomy Gallstone acute pancreatitis History of depression/anxiety -Patient to return discharged home on oral antibiotics -Home medications reconciled -Patient is medically optimized for discharge home Thank you for allowing us to participate in the care of this pleasant patient. Do not hesitate to contact us with questions. Someone can be reached from the [facility] hospitalist group all hours of the day at [phone] or via [employer][email or web address] serve. Objective - Vital Signs Vital signs: Vital Signs Temp 97.4 F L 11/20/22 08:00 Pulse 70 11/20/22 08:00 Resp 18 11/20/22 08:00 BP 135/81 11/20/22 08:00 Pulse Ox 96 11/20/22 08:01 FiO2 Intake & Output 11/19/22 11/20/22 11/20/22 18:59 06:59 18:59 Other: # Voids 3 2 2 - Labs CBC & Chem 7: 11/20/22 08:00 11/20/22 08:00 Labs: Abnormal Lab Results - Last 24 Hours (Table) 11/19/22 11/20/22 11/20/22 Range/Units 07:02 08:00 08:00 RBC 3.67 L (3.80-5.40) m/uL MCV 104.0 H (80.0-100.0) fL Chloride 108 H (98-107) mmol/L AST 61 H (14-36) U/L ALT 74 H (4-34) U/L Total Protein 5.7 L (6.3-8.2) g/dL Albumin 3.3 L (3.5-5.0) g/dL Procalcitonin 0.14 H (0.02-0.09) ng/mL
== END 2022-11-20 13:52 ==
LOC: EC 16:26 → 4SSUR 19:12 → INTOOBSV 19:12 → 4SSUR 20:11 → 6NMEDSUR 11-18 04:43
PROVIDERS: ADMIT Surgery; ATTEND Surgery
DX: K81.2 Acute cholecystitis with chronic cholecystitis (principal); K42.9 Umbilical hernia without obstruction or gangrene; J45.20 Mild intermittent asthma, uncomplicated; F32.A Depression, unspecified; K83.8 Other specified diseases of biliary tract; F17.210 Nicotine dependence, cigarettes, uncomplicated; K21.9 Gastro-esophageal reflux disease without esophagitis; Z79.899 Other long term (current) drug therapy; Z91.041 Radiographic dye allergy status; Z88.5 Allergy status to narcotic agent; Z91.013 Allergy to seafood; Z87.59 Personal history of other complications of pregnancy, childbirth and the puerperium; Z98.891 History of uterine scar from previous surgery; Z98.890 Other specified postprocedural states
CPT/HCPCS: 47562; 96376; 96361; 96374; 96375; 99285; 36415; 94760 ×2; 93005; 88304; 80053 ×4; 83690 ×2; 83735; 84484; 85025 ×3; 85027; 85610; 85730; 84145; 71045; 76705; 71275; 74174; G0378 ×3; J2543 ×4; J2250; J0330; J1200; J1644 ×4; J1100; J2710; J2930; J2405 ×3; J3010 ×2; J1170 ×6; J1885; J2370; J2704; Q9967; J2001

== ENCOUNTER 2023-11-11 07:50 | Emergency (ER) | payer BC ==
--- NOTE | 2023-11-11 08:19 | ED ---
Chest Pain HPI - General Chief Complaint: Chest Pain Stated Complaint: Chest Pain Time Seen by Provider: 11/11/23 08:00 Source: patient, RN notes reviewed Mode of arrival: ambulatory Limitations: no limitations - History of Present Illness Initial Comments: This is a 53-year-old female who presents to the emergency department for chest pain. States that it is in the center and bottom of her chest, just above the epigastric region. This started a couple of days ago, but just started to go into the back. Also reports some left-sided neck pain. Denies any associated shortness of breath. Pain is described as sharp and stabbing. She has history of costochondritis, but states that the pain she had with that did not go into her back. Denies any personal history of cardiac problems or family history of premature coronary artery disease. MD Complaint: chest pain - Related Data Home Medications Medication Instructions Recorded Confirmed PARoxetine [Paxil] 15 mg PO DAILY 10/16/18 11/11/23 Albuterol Sulfate [Albuterol 2 puff INHALATION RT-Q6H PRN 11/11/23 11/11/23 Sulfate Hfa] Multivitamins, Thera [Multivitamin 1 tab PO DAILY 11/11/23 11/11/23 (formulary)] Allergies Allergy/AdvReac Type Severity Reaction Status Date / Time Iodinated Contrast Media Allergy Anaphylaxis Verified 11/11/23 10:08 [Iodinated Contrast- Oral and IV Dye] shellfish derived [Shellfish] Allergy Hives all Verified 11/11/23 10:08 over morphine AdvReac Itching Verified 11/11/23 10:08 Review of Systems ROS Statement: Those systems with pertinent positive or pertinent negative responses have been documented in the HPI. ROS Other: All systems not noted in ROS Statement are negative. Past Medical History Past Medical History: Asthma History of Any Multi-Drug Resistant Organisms: None Reported Past Surgical History: Section, Cholecystectomy, Tonsillectomy Additional Past Surgical History / Comment(s): Tubal Past Anesthesia/Blood Transfusion Reactions: No Reported Reaction Past Psychological History: Depression Smoking Status: Vaper Past Alcohol Use History: Occasional Past Drug Use History: Marijuana General Exam Limitations: no limitations General appearance: alert, in no apparent distress Head exam: Present: atraumatic, normocephalic, normal inspection Respiratory exam: Present: normal lung sounds bilaterally. Absent: respiratory distress, wheezes, rales, rhonchi, stridor Cardiovascular Exam: Present: regular rate, normal rhythm, normal heart sounds. Absent: systolic murmur, diastolic murmur, rubs, gallop, clicks GI/Abdominal exam: Present: soft, normal bowel sounds. Absent: distended, tenderness, guarding, rebound, rigid Neurological exam: Present: alert, oriented X3, CN II-XII intact Psychiatric exam: Present: normal affect, normal mood Skin exam: Present: warm, dry, intact, normal color. Absent: rash Course Vital Signs 11/11/23 11/11/23 11/11/23 07:54 08:13 10:43 Temperature 97.9 F Pulse Rate 84 70 74 Respiratory 18 18 18 Rate Blood Pressure 134/70 131/74 105/70 O2 Sat by Pulse 100 97 66 L Oximetry 11/11/23 11/11/23 12:01 13:12 Temperature 98.7 F Pulse Rate 76 68 Respiratory 18 18 Rate Blood Pressure 109/76 119/72 O2 Sat by Pulse 99 99 Oximetry Chest Pain MDM - MDM This is a 53 year old female who presents to the emergency department for chest pain. Was pt. sent in by a medical professional or institution? @ -No Did you speak to anyone other than the patient for history? @ -No Did you review nursing and triage notes? @ -Yes, and I agree, it is accurate with regards to the patient's symptoms. Were old charts reviewed? @ -No Differential Diagnosis? @ -Differential Chest Pain: Stable Angina, Unstable Angina, STEMI, NSTEMI Aortic Dissection, Pneumothorax, Musculoskeletal, Esophageal Spasm GERD, Cholecystitis, Pancreatitis, Zoster, th is is not meant to be an all-inclusive list. EKG interpreted by me (3pts min.)? @ -EKG interpreted by me demonstrating the following: Sinus bradycardia. Ventricular rate 57 bpm, MO interval 167 ms, QRS duration 84 ms, QTc 447 ms. X-rays interpreted by me (1pt min.)? @ -Chest x-ray obtained, my interpretation identifies no localized consolidatio ns or infiltrates. CT interpreted by me (1pt min.)? @ -Not obtained U/S interpreted by me (1pt. min.)? @ -Ultrasound of the bilateral carotids obtained. My interpretation identifies calcifications bilaterally. What testing was considered but not performed? (CT, X-rays, U/S, labs)? Why? @ -None What meds were considered but not given? Why? @ -None Did you discuss the management of the patient with other professionals? @ -No Did you reconcile home meds? @ -No Was smoking cessation discussed for >3mins.? @ -No Was critical care preformed (if so, how long)? @ -No Were there social determinants of health that impacted care today? How? (Homelessness, low income, unemployed, alcoholism, drug addiction, transportation, low edu. Level, literacy, decrease access to med. care, [facility], rehab)? @ -No Was there de-escalation of care discussed even if they declined? (Discuss DNR or withdrawal of care, Hospice)? @ -No What co-morbidities impacted this encounter? (DM, HTN, Smoking, COPD, CAD, Cancer, CVA, Hep., AIDS, mental health diagnosis, sleep apnea, morbid obesity)? @ -None Was patient admitted / discharged? @ -Discharged. Lab work unremarkable, including a negative troponin and negative D-dimer. Chest x-ray reveals no acute process. Family requested an ultrasound of the bilateral carotid arteries due to the patient's neck pain. States that her family members have also required cleanouts of the carotid arteries. Ultrasound obtained demonstrating calcifications in the bilateral bulbs with no intimal thickening. Stenosis measured at 50 to 69% bilaterally. Discussed with the patient the option of admission for chest pain observation versus repeat troponin. Patient requests to proceed with a repeat troponin as opposed to cardiac observation. Repeat troponin obtained and found to be negative. Pain was well-controlled with Toradol in the emergency department. Advise discussing the moderate carotid stenosis with her primary care provider, she may need a referral to have these managed. Otherwise advised ibuprofen and Tylenol as needed for pain relief. Patient discharged home in stable condition and given strict return parameters. Undiagnosed new problem with uncertain prognosis? @ -None Drug Therapy requiring intensive monitoring for toxicity (Heparin, Nitro, Insulin, Cardizem)? @ -None Were any procedures done? @ -None Diagnosis/symptom? @ -Chest pain Acute, or Chronic, or Acute on Chronic? @ -Acute Uncomplicated (without systemic symptoms) or Complicated (systemic symptoms)? @ -Uncomplicated Side effects of treatment? @ -None Exacerbation, Progression, or Severe Exacerbation] @ -Not applicable Poses a threat to life or bodily function? @ -This will depend on the cause of the pain. Return precautions reviewed in depth, the patient is instructed to return to the emergency department with any new, worsening, or concerning symptoms. Patient verbalized understanding. This case was discussed in detail with the attending ED physician, Dr. Boss. Presentation, findings, and treatment plan discussed in detail as well. Disposition Clinical Impression: Chest pain, Neck pain Disposition: HOME SELF-CARE Instructions (If sedation given, give patient instructions): Chest Pain (ED), Costochondritis (ED) Additional Instructions: Return to the emergency department with any new, worsening, or concerning symptoms. Alternate with ibuprofen and Tylenol as needed for pain relief. Follow up with your primary care provider in 1-2 days. Is patient prescribed a controlled substance at d/c from ED?: No Referrals: Tha Quintana MD [Primary Care Provider] - 1-2 days Time of Disposition: 12:41
[2023-11-11 08:26] VITALS: RESP 18
[2023-11-11] MEDS: KETOROLAC 15 MG/ML 1 ML VIAL IVP STA ×3 (08:47→13:11)
[2023-11-11] MEDS: SODIUM CHLORIDE 0.9% 1,000 ML IV STA (08:47)
[2023-11-11 09:01] LABS: Basophils # (A) 0.1 k/uL (0-0.2); Basophils % (A) 1 %; Eosinophils # (A) 0.2 k/uL (0-0.7); Eosinophils % (A) 4 %; HCT 39.5 % (34.0-46.0); HGB 12.9 gm/dL (11.4-16.0); Lymphocytes # (A) 1.3 k/uL (1.0-4.8); Lymphocytes % (A) 26 %; MCH 32.7 pg (25.0-35.0); MCHC 32.5 g/dL (31.0-37.0); MCV 100.4 fL (80.0-100.0); Mean Platelet Volume 7.6; Monocytes # (A) 0.4 k/uL (0-1.0); Monocytes % (A) 7 %; Neutrophils # (A) 3.1 k/uL (1.3-7.7); Neutrophils % (A) 60 %; Platelet Count 368 k/uL (150-450); RBC 3.94 m/uL (3.80-5.40); RDW 12.1 % (11.5-15.5); WBC 5.2 k/uL (3.8-10.6)
--- NOTE | 2023-11-11 09:11 | XR ---
EXAMINATION TYPE: XR chest 2V DATE OF EXAM: 11/11/2023 9:00 AM CLINICAL INDICATION:Female, 53 years old with history of Chest Pain; [facility] COMPARISON: Chest radiographs from 11/17/2022 TECHNIQUE: XR chest 2V Frontal and lateral views of the chest. FINDINGS: Lungs/Pleura: There is no evidence of pleural effusion, focal consolidation, or pneumothorax. Pulmonary vascularity: Unremarkable. Heart/mediastinum: Cardiomediastinal silhouette is unremarkable. Musculoskeletal: No acute osseous pathology. Other findings: None Lines/Tubes: IMPRESSION: No acute cardiopulmonary disease/process.
[2023-11-11 09:13] LABS: ALT 24 U/L (4-34); AST 26 U/L (14-36); African American GFR (CKD) >90 (>60 ml/min/1.73 sqM); Alkaline Phosphatase 64 U/L (38-126); Amylase 69 U/L (30-110); Anion Gap 6 mmol/L; Blood Urea Nitrogen 12 mg/dL (7-17); Calcium 9.7 mg/dL (8.4-10.2); Carbon Dioxide 26 mmol/L (22-30); Chloride 108 mmol/L (98-107); Glucose 99 mg/dL (74-99); Lipase 107 U/L (23-300); Magnesium 2.1 mg/dL (1.6-2.3); Non-African American GFR(CKD) >90 (>60 ml/min/1.73 sqM); Potassium 4.1 mmol/L (3.5-5.1); Sodium 140 mmol/L (137-145); Total Bilirubin 0.5 mg/dL (0.2-1.3); Total Protein 6.4 g/dL (6.3-8.2)
[2023-11-11 09:17] LABS: Partial Thromboplastin Time 25.4 sec (22.0-30.0); Prothrombin Time 10.9 sec (10.0-12.5)
[2023-11-11] MEDS: ACETAMINOPHEN TAB 500 MG TAB PO STA (10:39)
--- NOTE | 2023-11-11 11:01 | US ---
EXAMINATION TYPE: US carotid duplex BILAT DATE OF EXAM: 11/11/2023 COMPARISON: NONE CLINICAL INDICATION: Female, 53 years old with history of Headaches, neck pain; TECHNIQUE: Carotid duplex ultrasound examination. Indirect Doppler criteria was utilized. FINDINGS: EXAM MEASUREMENTS: RIGHT: Peak Systolic Velocity (PSV) cm/sec ----- Right CCA: 65 ----- Right ICA: 146 ----- Right ECA: 56 ICA/CCA ratio: 2.3 RIGHT: End Diastole cm/sec ----- Right CCA: 24 ----- Right ICA: 61 ----- Right ECA: 12 LEFT: Peak Systolic Velocity (PSV) cm/sec ----- Left CCA: 92 ----- Left ICA: 104 ----- Left ECA: 75 ICA/CCA ratio: 1.1 LEFT: End Diastole cm/sec ----- Left CCA: 29 ----- Left ICA: 46 ----- Left ECA: 19 VERTEBRALS (direction of flow): Right Vertebral: Antegrade Left Vertebral: Antegrade Rhythm: Normal HOSPITALITY MANAGER NOTES: Calcifications seen in BL CCA Bulbs, no intimal thickening, elevated right ICA igor ocity IMPRESSION: Calcifications seen in BL CCA Bulbs, no intimal thickening, elevated right ICA velocity corresponding to 50-69% stenosis , carotid Doppler NASCET criteria Criteria for Assigning % of Stenosis / Diameter reduction (Estimation based on the indirect measurements of the internal carotid artery velocities (ICA PSV). 1. Normal (no stenosis)=ICA PSV < 125 cm/s: ratio < 2.0: ICA EDV<40 cm/s. 2. Less than 50% stenosis=ICA PSV < 125 cm/s: ratio < 2.0: ICA EDV<40 cm/s. 3. 50 to 69% stenosis=ICA PSV of 125 to 230 cm/s: ratio 2.0 ? 4.0: ICA EDV 40-100 cm/s. 4. Greater than 70% stenosis to near occlusion= ICA PSV > 230 cm/s: ratio > 4.0: ICA EDV > 100 cm/s. 5. Near occlusion= ICA PSV velocities may be low or undetectable: variable ratio and ICA EDV. 6. Total occlusion=unable to detect flow.
[2023-11-11 13:29] VITALS: BP 119/72; PULSE 68; TEMP 98.7
== END 2023-11-11 13:22 | disposition home or self-care (01) ==
LOC: EC 07:50
DX: M54.2 Cervicalgia (principal); R07.9 Chest pain, unspecified; R00.1 Bradycardia, unspecified; F12.90 Cannabis use, unspecified, uncomplicated; F17.290 Nicotine dependence, other tobacco product, uncomplicated; Z91.041 Radiographic dye allergy status; Z91.013 Allergy to seafood; Z88.5 Allergy status to narcotic agent
CPT/HCPCS: 36415; 93005; 85379; 80053; 82150; 83690; 83735; 84484; 85025; 85610; 85730; 71046; 93880; 99285; 96374; 96376 ×2; 96361 ×4; J1885

== ENCOUNTER → 2023-12-30 | Outpatient (CLI) | payer BC ==
--- NOTE | 2024-01-01 20:38 | MM ---
Reason for Exam: Screening (asymptomatic). Last mammogram was performed 2 year(s) and 3 month(s) ago. Patient History: Menarche at age 9. First Full-Term at age 22. Postmenopausal. Patient has history of breast feeding. Risk Values: Tracy 5 year model risk: 1.2%. NCI Lifetime model risk: 8.1%. Prior Study Comparison: 04/18/2019 Screening Mammogram, [facility]. 10/07/2021 Bilateral Diagnostic Mammogram, [facility]. Tissue Density: The breasts are heterogeneously dense, which may obscure small masses. Findings: Analyzed By CAD. There is no suspicious group of microcalcifications or new suspicious mass in either breast. Overall Assessment: Negative, BI-RAD 1 Management: Screening Mammogram of both breasts in 1 year. . Patient should continue monthly self-breast exams. A clinical breast exam by your physician is recommended on an annual basis. This exam should not preclude additional follow-up of suspicious palpable abnormalities. Note on Tracy scores and lifetime risk: 1. A Tracy score greater than 3% is considered moderate risk. If this is the case, consider specialist referral to assess eligibility for a risk reducing agent. 2. If overall lifetime risk for the development of breast cancer is 20% or higher, the patient may qualify for future screening with alternating mammogram and breast MRI. Electronically signed and approved by: Behzad Alcala M.D. Radiologist
== END | disposition home or self-care (01) ==
LOC: RADMAMWWP 06:46
PROVIDERS: ATTEND Family Medicine
DX: Z12.31 Encounter for screening mammogram for malignant neoplasm of breast (principal); Z78.0 Asymptomatic menopausal state
CPT/HCPCS: 77063; 77067

== ENCOUNTER → 2024-02-03 | Outpatient (CLI) | payer BC ==
--- NOTE | 2024-02-03 11:51 | USB ---
Reason for Exam: Clinical finding. Patient History: Menarche at age 9. First Full-Term at age 22. Postmenopausal. Patient has history of breast feeding. Risk Values: Tracy 5 year model risk: 1.2%. NCI Lifetime model risk: 8.1%. Technique: Method: Targeted. Prior Study Comparison: 04/18/2019 Screening Mammogram, [facility]. 10/07/2021 Bilateral Diagnostic Mammogram, [facility]. 12/30/2023 Bilateral MG 3D screening mammo w/cad, [facility]. Findings: The lateral section of the breast of the left breast, the axilla of the left breast and the retroareolar of the left breast were scanned. No solid or cystic masses are identified.. Overall Assessment: Incomplete: need additional imaging evaluation, BI-RAD 0 Management: Diagnostic Mammogram of the left breast. A clinical breast exam by your physician is recommended on an annual basis and results should be correlated with mammographic findings. This exam should not preclude additional follow-up of suspicious palpable abnormalities. Results were given to the patient verbally at the time of exam. Electronically signed and approved by: Don Chiu D.O. Radiologis
--- NOTE | 2024-02-03 16:13 | MM ---
Reason for Exam: Clinical finding. Last screening mammogram was performed 1 month(s) ago. Indicated Problems: Pain of the left side (Global) for 7 Month(s). Patient History: Menarche at age 9. First Full-Term at age 22. Postmenopausal. Patient has history of breast feeding. Risk Values: Tracy 5 year model risk: 1.2%. NCI Lifetime model risk: 8.1%. Prior Study Comparison: 04/18/2019 Screening Mammogram, [facility]. 10/07/2021 Bilateral Diagnostic Mammogram, [facility]. 12/30/2023 Bilateral MG 3D screening mammo w/cad, [facility]. Tissue Density: Left: The breasts are heterogeneously dense, which may obscure small masses. Findings: Analyzed By CAD. The pattern is stable. Nodularities in the upper outer left breast. No significant interval changes are No suspicious groups of microcalcifications, spiculated or lobular masses, architectural distortion or other secondary signs of malignancy are mammographically apparent. Overall Assessment: Probably benign, BI-RAD 3 Management: Diagnostic Mammogram of the left breast in 6 months. A negative mammogram report should not preclude additional follow up of suspicious palpable abnormalities. Patient should continue monthly self breast exam. A clinical breast exam by your physician is recommended on an annual basis and results should be correlated with mammographic findings. Note on Tracy scores and lifetime risk: 1. A Tracy score greater than 3% is considered moderate risk. If this is the case, consider specialist referral to assess eligibility for a risk reducing agent. 2. If overall lifetime risk for the development of breast cancer is 20% or higher, the patient may qualify for future screening with alternating mammogram and breast MRI. Electronically signed and approved by: Don Chiu D.O. Radiologis
== END | disposition home or self-care (01) ==
LOC: RADMAMWWP 10:49
PROVIDERS: ATTEND Family Medicine
DX: N64.4 Mastodynia (principal); Z78.0 Asymptomatic menopausal state
CPT/HCPCS: 77061; 77065

== ENCOUNTER 2024-05-13 21:56 | Emergency (ER) | payer BC ==
[2024-05-13 22:01] VITALS: TEMP 98.2
--- NOTE | 2024-05-13 22:17 | ED ---
General Adult HPI - General Chief complaint: Arrhythmia/Palpitations Stated complaint: Heart Palpitations Time Seen by Provider: 05/13/24 22:12 Source: patient Mode of arrival: ambulatory Limitations: no limitations - History of Present Illness Initial comments: This patient is a 53-year-old woman who presents to have evaluation for cough, wheezing, heart palpitations and upper respiratory symptoms had been going on approximately 2 weeks. The patient has been seen at an urgent care twice. The first time she did not receive any real treatments, on the return visit she was given a Medrol Dosepak and azithromycin which she finished a week ago. She states she is not really feeling much better. She is also taken some [id number] Sudafed that she states slightly improved the upper respiratory symptoms. The patient presents today because she was feeling short of breath at times and a home pulse oximeter at time was reading below 90. Patient states she feels better sitting upright. She has some chest pains but only with cough. No leg pain or swelling. -: week(s) Quality: aching Consistency: intermittent Improves with: none Worsens with: none Associated Symptoms: cough, shortness of breath Treatments Prior to Arrival: none - Related Data Home Medications Medication Instructions Recorded Confirmed PARoxetine [Paxil] 15 mg PO DAILY 10/16/18 11/11/23 Albuterol Sulfate [Albuterol 2 puff INHALATION RT-Q6H PRN 11/11/23 11/11/23 Sulfate Hfa] Multivitamins, Thera [Multivitamin 1 tab PO DAILY 11/11/23 11/11/23 (formulary)] Previous Rx's Medication Instructions Recorded Albuterol Inhaler [Ventolin Hfa 2 puff INHALATION Q4HR PRN #8 gm 05/14/24 Inhaler] predniSONE 60 mg PO DAILY #30 tab 05/14/24 Allergies Allergy/AdvReac Type Severity Reaction Status Date / Time Iodinated Contrast Media Allergy Anaphylaxis Verified 05/13/24 22:01 [Iodinated Contrast- Oral and IV Dye] shellfish derived [Shellfish] Allergy Hives all Verified 05/13/24 22:01 over morphine AdvReac Itching Verified 05/13/24 22:01 Review of Systems ROS Statement: Those systems with pertinent positive or pertinent negative responses have been documented in the HPI. ROS Other: All systems not noted in ROS Statement are negative. Constitutional: Denies: fever, chills ENT: Reports: congestion Respiratory: Reports: cough, dyspnea, wheezes Cardiovascular: Denies: chest pain, palpitations, orthopnea, edema, syncope Gastrointestinal: Denies: abdominal pain, nausea, vomiting, diarrhea Genitourinary: Denies: dysuria, hematuria Musculoskeletal: Denies: back pain Skin: Denies: rash Neurological: Denies: headache, weakness Past Medical History Past Medical History: Asthma History of Any Multi-Drug Resistant Organisms: None Reported Past Surgical History: Section, Cholecystectomy, Tonsillectomy Additional Past Surgical History / Comment(s): Tubal Past Anesthesia/Blood Transfusion Reactions: No Reported Reaction Past Psychological History: Depression Smoking Status: Vaper Past Alcohol Use History: None Reported Past Drug Use History: Marijuana General Exam Limitations: no limitations General appearance: alert, in no apparent distress Head exam: Present: atraumatic, normocephalic Eye exam: Present: normal appearance. Absent: scleral icterus, conjunctival injection Neck exam: Present: normal inspection Respiratory exam: Present: wheezes. Absent: respiratory distress, rales, rhonchi, stridor, accessory muscle use, decreased breath sounds, prolonged expiratory Cardiovascular Exam: Present: regular rate, normal rhythm, normal heart sounds. Absent: systolic murmur, diastolic murmur, rubs, gallop GI/Abdominal exam: Present: soft. Absent: distended, tenderness, guarding, rebound, rigid, mass Extremities exam: Present: normal inspection, normal capillary refill. Absent: pedal edema, calf tenderness Back exam: Present: normal inspection. Absent: CVA tenderness (R), CVA tenderness (L) Neurological exam: Present: alert Skin exam: Present: warm, dry, intact, normal color. Absent: rash Course Vital Signs 05/13/24 05/13/24 05/14/24 21:57 23:42 00:22 Temperature 98.2 F Pulse Rate 100 81 94 Respiratory 16 Rate Blood Pressure 161/82 O2 Sat by Pulse 94 L Oximetry 05/14/24 05/14/24 05/14/24 00:48 01:13 01:23 Temperature Pulse Rate 100 96 90 Respiratory 18 Rate Blood Pressure 128/82 O2 Sat by Pulse 98 Oximetry EKG Findings - EKG Results: EKG: sinus rhythm (Rate 89 bpm), normal axis, normal ST/T - Dysrhythmias: Sinus rhythms and dysrhythmias: sinus rhythm - Blocks, [place], Hypertrophy, ST Abn: QRS axis and voltage: low voltage (<0.5 MV total QRS and <1.0 MV in each precordial lead) Medical Decision Making - Medical Decision Making The patient had chest x-ray that I interpreted as negative for acute infiltrate, pneumothorax, congestive heart failure. Was pt. sent in by a medical professional or institution ([facility], [facility], urgent care, hospital, or fpc...) When possible be specific @ -[No] Did you speak to anyone other than the patient for history (EMS, parent, family, police, friend...)? What history was obtained from this source @ -[No] Did you review nursing and triage notes (agree or disagree)? Why? @ -[I reviewed and agree with nursing and triage notes] Were old charts reviewed (outside hosp., previous admission, EMS record, old EKG, old radiological studies, urgent care reports/EKG's, fpc records)? Report findings @ -[No old charts were reviewed] Differential Diagnosis (chest pain, altered mental status, abdominal pain women, abdominal pain men, vaginal bleeding, weakness, fever, dyspnea, syncope, headache, dizziness, GI bleed, back pain, seizure, CVA, palpatations, mental health, musculoskeletal)? @ -[Differential Dyspnea: Coronary syndrome, arrhythmia, tamponade, asthma, COPD, pulmonary embolism, pneumonia, pneumothorax, pulmonary effusion, anaphylaxis, diabetic ketoacidosis, flailed chest, pulmonary contusion, diaphragmatic rupture, anemia, neuromuscular, this is not meant to be an all-inclusive list. EKG interpreted by me (3pts min.). @ -[I interpreted as above X-rays interpreted by me (1pt min.). @ -[I interpreted as above CT interpreted by me (1pt min.). @ -[None done] U/S interpreted by me (1pt. min.). @ -[None done] What testing was considered but not performed or refused? (CT, X-rays, U/S, labs)? Why? @ -[None] What meds were considered but not given or refused? Why? @ -[None] Did you discuss the management of the patient with other professionals (professionals i.e. Dr., PA, [facility], lab, RT, psych nurse, social work faculty member, order picker, teacher, truant officer, family independence case manager)? Give summary @ -[No] Was smoking cessation discussed for >3mins.? @ -[No] Was critical care preformed (if so, how long)? @ -[No] Were there social determinants of health that impacted care today? How? (Homelessness, low income, unemployed, alcoholism, drug addiction, transportation, low edu. Level, literacy, decrease access to med. care, [facility], rehab)? @ -[No] Was there de-escalation of care discussed even if they declined (Discuss DNR or withdrawal of care, Hospice)? DNR status @ -[No] What co-morbidities impacted this encounter? (DM, HTN, Smoking, COPD, CAD, Cancer, CVA, ARF, Chemo, Hep., AIDS, mental health diagnosis, sleep apnea, morbid obesity)? @ -[None] Was patient admitted / discharged? Hospital course, mention meds given and route, prescriptions, significant lab abnormalities, going to OR and other pertinent info. @ -[hospital course] Undiagnosed new problem with uncertain prognosis? @ -[No] Drug Therapy requiring intensive monitoring for toxicity (Heparin, Nitro, Insulin, Cardizem)? @ -[No] Were any procedures done? @ -[No] Diagnosis/symptom? @ -[Acute bronchitis Acute, or Chronic, or Acute on Chronic? @ -[Acute Uncomplicated (without systemic symptoms) or Complicated (systemic symptoms)? @ -[Uncomplicated Side effects of treatment? @ -[No] Exacerbation, Progression, or Severe Exacerbation? @ -[No] Poses a threat to life or bodily function? How? (Chest pain, [place], [place], pneumonia, PE, COPD, DKA, ARF, appy, cholecystitis, CVA, Diverticulitis, Homicidal, Suicidal, threat to staff... and all critical care pts) @ -[No] - Lab Data Lab Results 05/13/24 Range/Units 22:25 Influenza Type A (PCR) Not Detected (Not Detectd) Influenza Type B (PCR) Not Detected (Not Detectd) RSV (PCR) Not Detected (Not Detectd) SARS-CoV-2 (PCR) Not Detected (Not Detectd) Disposition Clinical Impression: Bronchitis Disposition: HOME SELF-CARE Condition: Good Instructions (If sedation given, give patient instructions): Heart Palpitations (ED), Acute Bronchitis (ED) Prescriptions: predniSONE 60 mg PO DAILY #30 tab Albuterol Inhaler [Ventolin Hfa Inhaler] 2 puff INHALATION Q4HR PRN #8 gm PRN Reason: Wheezing Is patient prescribed a controlled substance at d/c from ED?: No Referrals: Tha Quintana MD [Primary Care Provider] - 1-2 days Shaniqua Colmenares MD [STAFF PHYSICIAN] - 1-2 days
[2024-05-13] MEDS: ALBUTEROL NEBULIZED 2.5 MG/3 ML INHALATION STA (23:40)
[2024-05-13] MEDS: IPRATROPIUM-ALBUTEROL 3 ML NEB INHALATION STA (23:40)
--- NOTE | 2024-05-14 00:19 | XR ---
EXAM: XR Chest, 2 Views CLINICAL HISTORY: ITS.REASON XR Reason: cough/dyspnea TECHNIQUE: Frontal and lateral views of the chest. COMPARISON: 11/11/2023. FINDINGS: Lungs: Mild COPD. No consolidation. Pleural space: Unremarkable. No pneumothorax. Heart: Heart is normal in size. No cardiomegaly. Mediastinum: Unremarkable. Normal mediastinal contour. Bones/joints: Moderate to severe degenerative disc disease of the thoracic spine. No acute fracture. Soft tissues: The soft tissues are unremarkable. IMPRESSION: 1. Mild COPD. 2. No consolidative changes or pleural effusions.
[2024-05-14 00:49] VITALS: BP 128/82; RESP 18
[2024-05-14] MEDS: ALBUTEROL NEBULIZED 2.5 MG/3 ML INHALATION STA (01:12)
[2024-05-14 01:24] VITALS: PULSE 90
== END 2024-05-14 01:37 | disposition home or self-care (01) ==
LOC: EC 21:56
CPT/HCPCS: 71046; 87636; 93005; 94640; 99285

== ENCOUNTER → 2024-06-25 | Outpatient (CLI) | payer BC | END | disposition home or self-care (01) | LOC: RADECHMAIN 13:24 | PROVIDERS: ATTEND Family Medicine | DX: J45.909 Unspecified asthma, uncomplicated (principal); R06.09 Other forms of dyspnea; R00.0 Tachycardia, unspecified; Z87.891 Personal history of nicotine dependence | CPT/HCPCS: 93225 ==

== ENCOUNTER 2024-08-16 08:05 | Inpatient (IN) | payer BC, OTHER ==
[2024-08-16 08:41] LABS: Basophils # (A) 0.1 k/uL (0-0.2); Basophils % (A) 0 %; Eosinophils # (A) 0.1 k/uL (0-0.7); Eosinophils % (A) 0 %; HCT 45.1 % (34.0-46.0); HGB 15.2 gm/dL (11.4-16.0); Lymphocytes # (A) 1.7 k/uL (1.0-4.8); Lymphocytes % (A) 8 %; MCH 32.7 pg (25.0-35.0); MCHC 33.7 g/dL (31.0-37.0); Mean Platelet Volume 7.2; Monocytes # (A) 1.1 k/uL (0-1.0); Monocytes % (A) 5 %; Neutrophils # (A) 18.5 k/uL (1.3-7.7); Neutrophils % (A) 85 %; Platelet Count 369 k/uL (150-450); RBC 4.64 m/uL (3.80-5.40); WBC 21.7 k/uL (3.8-10.6)
[2024-08-16 08:56] LABS: Partial Thromboplastin Time 24.8 sec (22.0-30.0); Prothrombin Time 11.5 sec (10.0-12.5)
[2024-08-16 08:57] LABS: ALT 28 U/L (4-34); AST 27 U/L (14-36); African American GFR (CKD) >90 (>60 ml/min/1.73 sqM); Albumin 4.8 g/dL (3.5-5.0); Alkaline Phosphatase 82 U/L (38-126); Anion Gap 15 mmol/L; Blood Urea Nitrogen 12 mg/dL (7-17); Calcium 10.3 mg/dL (8.4-10.2); Carbon Dioxide 20 mmol/L (22-30); Chloride 100 mmol/L (98-107); Glucose 140 mg/dL (74-99); Non-African American GFR(CKD) >90 (>60 ml/min/1.73 sqM); Potassium 3.9 mmol/L (3.5-5.1); Sodium 135 mmol/L (137-145); Total Bilirubin 0.6 mg/dL (0.2-1.3); Total Protein 7.6 g/dL (6.3-8.2)
--- NOTE | 2024-08-16 09:19 | XR ---
EXAMINATION TYPE: XR chest 2V DATE OF EXAM: 08/16/2024 9:02 AM COMPARISON: 05/13/2024 CLINICAL INDICATION: Female, 54 years old with history of chest pain, TECHNIQUE: XR chest 2V view(s) obtained. FINDINGS: The heart size is normal. The pulmonary vasculature is normal. The lungs are clear. IMPRESSION: 1. No acute pulmonary process. [facility], , 08/16/2024 9:17 AM
--- NOTE | 2024-08-16 09:25 | ED ---
Recheck HPI - General Chief Complaint: Recheck/Abnormal Lab/Rx Stated Complaint: Chest pain,SOB Time Seen by Provider: 08/16/24 08:29 Source: patient Mode of arrival: wheelchair Limitations: no limitations - History of Present Illness Initial Comments: This is a 54-year female no significant medical history presenting to the emergency department with complaints of fatigue, body aches, chest pain, and fever over the past 2 days. States that this morning she began to experience diarrhea that was nonbloody in addition to nausea with no reported emesis. Patient states that she has been having intermittent chest pain described as a pressure that is nonradiating. Patient had outpatient cardiac evaluation completed month prior where the patient wore a color television console monitor for 1 month with no abnormal test results. Additionally, states that she has been experiencing burning of her vaginal region with a odor and is concerned that there may be an infection developing. She denies concern for STI or STD. - Related Data Home Medications Medication Instructions Recorded Confirmed PARoxetine [Paxil] 15 mg PO DAILY 10/16/18 08/16/24 Cholecalciferol (Vitamin D3) 50 mcg PO DAILY 08/16/24 08/16/24 [Vitamin D3 (50 Mcg = 2000 Iu)] Allergies Allergy/AdvReac Type Severity Reaction Status Date / Time Iodinated Contrast Media Allergy Anaphylaxis Verified 08/16/24 11:13 [Iodinated Contrast- Oral and IV Dye] shellfish derived [Shellfish] Allergy Hives all Verified 08/16/24 11:13 over morphine AdvReac Itching Verified 08/16/24 11:13 Review of Systems ROS Statement: Those systems with pertinent positive or pertinent negative responses have been documented in the HPI. ROS Other: All systems not noted in ROS Statement are negative. Past Medical History Past Medical History: Asthma History of Any Multi-Drug Resistant Organisms: None Reported Past Surgical History: Section, Cholecystectomy, Tonsillectomy Additional Past Surgical History / Comment(s): Tubal Past Anesthesia/Blood Transfusion Reactions: No Reported Reaction Past Psychological History: Depression Smoking Status: Vaper Past Alcohol Use History: None Reported Past Drug Use History: Marijuana General Exam Limitations: no limitations General appearance: alert, in no apparent distress ENT exam: Present: normal exam, mucous membranes moist Neck exam: Present: normal inspection. Absent: tenderness, meningismus, lymphadenopathy Respiratory exam: Present: normal lung sounds bilaterally. Absent: respiratory distress, wheezes, rales, rhonchi, stridor Cardiovascular Exam: Present: normal rhythm, tachycardia, normal heart sounds. Absent: systolic murmur, diastolic murmur, rubs, gallop, clicks GI/Abdominal exam: Present: soft, tenderness (suprapubic), normal bowel sounds. Absent: distended, guarding, rebound, rigid External exam: Present: normal external exam. Absent: erythema, swelling Speculum exam: Present: erythema, vaginal discharge. Absent: normal speculum exam By manual exam: Present: normal by manual exam. Absent: uterine enlargement, uterine tenderness Back exam: Present: normal inspection Skin exam: Present: warm, dry, intact, normal color. Absent: rash Course Vital Signs 08/16/24 08/16/24 08/16/24 08:07 09:35 09:55 Temperature 98.3 F 98.3 F Pulse Rate 129 H 103 H 97 Respiratory 18 24 Rate Blood Pressure 128/83 128/79 O2 Sat by Pulse 99 98 95 Oximetry 08/16/24 08/16/24 10:00 13:04 Temperature Pulse Rate 105 H 93 Respiratory 22 18 Rate Blood Pressure 134/72 118/67 O2 Sat by Pulse 94 L 95 Oximetry Medical Decision Making - Medical Decision Making Was pt. sent in by a medical professional or institution (, PA, IDENTITY ACCESS MANAGEMENT ARCHITECT, urgent care, hospital, or shelter...) When possible be specific @ -No Did you speak to anyone other than the patient for history (EMS, parent, family, police, friend...)? What history was obtained from this source @ -No Did you review nursing and triage notes (agree or disagree)? Why? @ -I reviewed and agree with nursing and triage notes Were old charts reviewed (outside hosp., previous admission, EMS record, old EKG, old radiological studies, urgent care reports/EKG's, shelter records)? Report findings @ -No old charts were reviewed Differential Diagnosis (chest pain, altered mental status, abdominal pain women, abdominal pain men, vaginal bleeding, weakness, fever, dyspnea, syncope, headache, dizziness, GI bleed, back pain, seizure, CVA, palpatations, mental health, musculoskeletal)? @ -Differential Abdominal Pain Women: Appendicitis, Cholecystitis, diverticulosis, ischemic bowel, pancreatitis, hepatitis, UTI, gastroenteritis, AAA, incarcerated hernia, bowel obstruction, constipation, inflammatory bowel, hepatitis, peptic ulcer disease, splenic infarction, perforated viscus, vulvitis, ovarian torsion, PID, kidney stone, placenta abruption, this is not meant to be an all-inclusive list EKG interpreted by me (3pts min.). @ -Completed at 817 sinus tachycardia with a ventricular rate of 127, MT int erval 160, QRS 85, QTc 395. X-rays interpreted by me (1pt min.). @ -None done CT interpreted by me (1pt min.). @ -None done U/S interpreted by me (1pt. min.). @ -None done What testing was considered but not performed or refused? (CT, X-rays, U/S, labs)? Why? @ -None What meds were considered but not given or refused? Why? @ -None Did you discuss the management of the patient with other professionals (professionals i.e. , PA, IDENTITY ACCESS MANAGEMENT ARCHITECT, lab, RT, psych nurse, social sciences research scientist, slip box changer, teacher, strike warfare/missile systems officer, housing case manager)? Give summary @ -I spoke with Dr. Bernal, from [facility] internal medicine physicians was agreed for admission with initiation of IV antibiotics. Was smoking cessation discussed for >3mins.? @ -No Was critical care preformed (if so, how long)? @ -No Were there social determinants of health that impacted care today? How? (Homelessness, low income, unemployed, alcoholism, drug addiction, transportation, low edu. Level, literacy, decrease access to med. care, residential, rehab)? @ -No Was there de-escalation of care discussed even if they declined (Discuss DNR or withdrawal of care, Hospice)? DNR status @ -No What co-morbidities impacted this encounter? (DM, HTN, Smoking, COPD, CAD, Cancer, CVA, ARF, Chemo, Hep., AIDS, mental health diagnosis, sleep apnea, morbid obesity)? @ -None Was patient admitted / discharged? Hospital course, mention meds given and route, prescriptions, significant lab abnormalities, going to OR and other pertinent info. @ -Admitted. 54-year-old female presenting with and pelvic symptoms. Patient is noted to be tachycardic on arrival with a heart rate of 129. She is noted to have suprapubic tenderness to palpation. She is symptomatically treated with IV fluids, antiemetics, pain medications pending laboratory results. Additionally, pelvic exam completed with nurse at bedside as marketing director assisted living concerning for malodorous cervical and vaginal discharge that is yellow frothy in color with lesions. Concern for possible pelvic infection therefore addition of trichomonas, chlamydia, gonorrhea added to urinalysis. Labs remarkable for leukocytosis of 21.7 in addition to urinary tract infection with white cells, large leukocyte esterase. Viral testing is negative. Patient does meet SIRS criteria and at this time blood cultures are obtained and patient will be initiated on antibiotics including Rocephin and Flagyl. Patient's urine is sent for culture. Case discussed with attending Dr. Boss and will be admitted to Dr. Rahman. Undiagnosed new problem with uncertain prognosis? @ -No Drug Therapy requiring intensive monitoring for toxicity (Heparin, Nitro, Insulin, Cardizem)? @ -No Were any procedures done? @ -No Diagnosis/symptom? @ -UTI, pelvic infection, SIRS criteria, vaginal discharge Acute, or Chronic, or Acute on Chronic? @ -acute Uncomplicated (without systemic symptoms) or Complicated (systemic symptoms)? @ -uncomplicated Side effects of treatment? @ -No Exacerbation, Progression, or Severe Exacerbation? @ -No Poses a threat to life or bodily function? How? (Chest pain, [place], [place], pneumonia, PE, COPD, DKA, ARF, appy, cholecystitis, CVA, Diverticulitis, Homicidal, Suicidal, threat to staff... and all critical care pts) @ -No - Lab Data Result diagrams: 08/16/24 08:31 08/16/24 08:31 Lab Results 08/16/24 08/16/24 08/16/24 Range/Units 08:17 08:31 08:31 WBC 21.7 H (3.8-10.6) k/uL RBC 4.64 (3.80-5.40) m/uL Hgb 15.2 (11.4-16.0) gm/dL Hct 45.1 (34.0-46.0) % MCV 97.0 (80.0-100.0) fL MCH 32.7 (25.0-35.0) pg MCHC 33.7 (31.0-37.0) g/dL RDW 12.0 (11.5-15.5) % Plt Count 369 (150-450) k/uL MPV 7.2 Neutrophils % 85 % Lymphocytes % 8 % Monocytes % 5 % Eosinophils % 0 % Basophils % 0 % Neutrophils # 18.5 H (1.3-7.7) k/uL Lymphocytes # 1.7 (1.0-4.8) k/uL Monocytes # 1.1 H (0-1.0) k/uL Eosinophils # 0.1 (0-0.7) k/uL Basophils # 0.1 (0-0.2) k/uL PT 11.5 (10.0-12.5) sec INR 1.0 (<1.2) APTT 24.8 (22.0-30.0) sec Sodium (137-145) mmol/L Potassium (3.5-5.1) mmol/L Chloride (98-107) mmol/L Carbon Dioxide (22-30) mmol/L Anion Gap mmol/L BUN (7-17) mg/dL Creatinine (0.52-1.04) mg/dL Est GFR (CKD-EPI)AfAm (>60 ml/min/1.73 sqM) Est GFR (CKD-EPI)NonAf (>60 ml/min/1.73 sqM) Glucose (74-99) mg/dL Calcium (8.4-10.2) mg/dL Total Bilirubin (0.2-1.3) mg/dL AST (14-36) U/L ALT (4-34) U/L Alkaline Phosphatase (38-126) U/L Troponin I (0.000-0.034) ng/mL Total Protein (6.3-8.2) g/dL Albumin (3.5-5.0) g/dL Amylase (30-110) U/L Lipase (23-300) U/L Urine Color Urine Appearance (Clear) Urine pH (5.0-8.0) Ur Specific Hermon (1.001-1.035) Urine Protein (Negative) Urine Glucose (UA) (Negative) Urine Ketones (Negative) Urine Blood (Negative) Urine Nitrite (Negative) Urine Bilirubin (Negative) Urine Urobilinogen (<2.0) mg/dL Ur Leukocyte Esterase (Negative) Urine RBC (0-5) /hpf Urine WBC (0-5) /hpf Ur Squamous Epith Cells (0-4) /hpf Urine Bacteria (None) /hpf Urine Mucus (None) /hpf Influenza Type A (PCR) Not Detected (Not Detectd) Influenza Type B (PCR) Not Detected (Not Detectd) RSV (PCR) Not Detected (Not Detectd) SARS-CoV-2 (PCR) Not Detected (Not Detectd) 08/16/24 08/16/24 08/16/24 Range/Units 08:31 08:31 08:31 WBC (3.8-10.6) k/uL RBC (3.80-5.40) m/uL Hgb (11.4-16.0) gm/dL Hct (34.0-46.0) % MCV (80.0-100.0) fL MCH (25.0-35.0) pg MCHC (31.0-37.0) g/dL RDW (11.5-15.5) % Plt Count (150-450) k/uL MPV Neutrophils % % Lymphocytes % % Monocytes % % Eosinophils % % Basophils % % Neutrophils # (1.3-7.7) k/uL Lymphocytes # (1.0-4.8) k/uL Monocytes # (0-1.0) k/uL Eosinophils # (0-0.7) k/uL Basophils # (0-0.2) k/uL PT (10.0-12.5) sec INR (<1.2) APTT (22.0-30.0) sec Sodium 135 L (137-145) mmol/L Potassium 3.9 (3.5-5.1) mmol/L Chloride 100 (98-107) mmol/L Carbon Dioxide 20 L (22-30) mmol/L Anion Gap 15 mmol/L BUN 12 (7-17) mg/dL Creatinine 0.73 (0.52-1.04) mg/dL Est GFR (CKD-EPI)AfAm >90 (>60 ml/min/1.73 sqM) Est GFR (CKD-EPI)NonAf >90 (>60 ml/min/1.73 sqM) Glucose 140 H (74-99) mg/dL Calcium 10.3 H (8.4-10.2) mg/dL Total Bilirubin 0.6 (0.2-1.3) mg/dL AST 27 (14-36) U/L ALT 28 (4-34) U/L Alkaline Phosphatase 82 (38-126) U/L Troponin I <0.012 (0.000-0.034) ng/mL Total Protein 7.6 (6.3-8.2) g/dL Albumin 4.8 (3.5-5.0) g/dL Amylase 54 (30-110) U/L Lipase 62 (23-300) U/L Urine Color Urine Appearance (Clear) Urine pH (5.0-8.0) Ur Specific Hermon (1.001-1.035) Urine Protein (Negative) Urine Glucose (UA) (Negative) Urine Ketones (Negative) Urine Blood (Negative) Urine Nitrite (Negative) Urine Bilirubin (Negative) Urine Urobilinogen (<2.0) mg/dL Ur Leukocyte Esterase (Negative) Urine RBC (0-5) /hpf Urine WBC (0-5) /hpf Ur Squamous Epith Cells (0-4) /hpf Urine Bacteria (None) /hpf Urine Mucus (None) /hpf Influenza Type A (PCR) (Not Detectd) Influenza Type B (PCR) (Not Detectd) RSV (PCR) (Not Detectd) SARS-CoV-2 (PCR) (Not Detectd) 08/16/24 Range/Units 09:35 WBC (3.8-10.6) k/uL RBC (3.80-5.40) m/uL Hgb (11.4-16.0) gm/dL Hct (34.0-46.0) % MCV (80.0-100.0) fL MCH (25.0-35.0) pg MCHC (31.0-37.0) g/dL RDW (11.5-15.5) % Plt Count (150-450) k/uL MPV Neutrophils % % Lymphocytes % % Monocytes % % Eosinophils % % Basophils % % Neutrophils # (1.3-7.7) k/uL Lymphocytes # (1.0-4.8) k/uL Monocytes # (0-1.0) k/uL Eosinophils # (0-0.7) k/uL Basophils # (0-0.2) k/uL PT (10.0-12.5) sec INR (<1.2) APTT (22.0-30.0) sec Sodium (137-145) mmol/L Potassium (3.5-5.1) mmol/L Chloride (98-107) mmol/L Carbon Dioxide (22-30) mmol/L Anion Gap mmol/L BUN (7-17) mg/dL Creatinine (0.52-1.04) mg/dL Est GFR (CKD-EPI)AfAm (>60 ml/min/1.73 sqM) Est GFR (CKD-EPI)NonAf (>60 ml/min/1.73 sqM) Glucose (74-99) mg/dL Calcium (8.4-10.2) mg/dL Total Bilirubin (0.2-1.3) mg/dL AST (14-36) U/L ALT (4-34) U/L Alkaline Phosphatase (38-126) U/L Troponin I (0.000-0.034) ng/mL Total Protein (6.3-8.2) g/dL Albumin (3.5-5.0) g/dL Amylase (30-110) U/L Lipase (23-300) U/L Urine Color Yellow Urine Appearance Cloudy H (Clear) Urine pH 5.5 (5.0-8.0) Ur Specific [place] 1.029 (1.001-1.035) Urine Protein 1+ H (Negative) Urine Glucose (UA) Negative (Negative) Urine Ketones 3+ H (Negative) Urine Blood Moderate H (Negative) Urine Nitrite Negative (Negative) Urine Bilirubin Negative (Negative) Urine Urobilinogen 2.0 (<2.0) mg/dL Ur Leukocyte Esterase Large H (Negative) Urine RBC 42 H (0-5) /hpf Urine WBC >182 H (0-5) /hpf Ur Squamous Epith Cells 2 (0-4) /hpf Urine Bacteria Rare H (None) /hpf Urine Mucus Many H (None) /hpf Influenza Type A (PCR) (Not Detectd) Influenza Type B (PCR) (Not Detectd) RSV (PCR) (Not Detectd) SARS-CoV-2 (PCR) (Not Detectd) Disposition Clinical Impression: UTI (urinary tract infection), Vaginal discharge, SIRS (systemic inflammatory response syndrome) Disposition: ADMITTED IP TO THIS [facility] Condition: Stable Decision to Admit Reason: Admit from EC Decision Date: 08/16/24 Decision Time: 11:32
[2024-08-16] MEDS: SODIUM CHLORIDE 0.9% 1,000 ML IV STA (09:29)
[2024-08-16] MEDS: KETOROLAC 15 MG/ML 1 ML VIAL IVP STA (09:33)
[2024-08-16] MEDS: ONDANSETRON 4 MG/2 ML VIAL IVP STA (09:34)
[2024-08-16 09:44] LABS: Amylase 54 U/L (30-110); Lipase 62 U/L (23-300)
[2024-08-16 09:52] LABS: Appearance,Urine Cloudy (Clear); Bacteria,Urine Rare /hpf; Bilirubin,Urine Negative (Negative); Blood,Urine Moderate (Negative); Color,Urine Yellow; Glucose,Urine (UA) Negative (Negative); Ketones,Urine 3+ (Negative); Leukocyte Esterase,Urine Large (Negative); Mucus,Urine Many /hpf; Nitrite,Urine Negative (Negative); PH, Urine 5.5 (5.0-8.0); Protein,Urine 1+ (Negative); RBC,Urine 42 /hpf (0-5); Specific Gravity,Urine 1.029 (1.001-1.035); Squamous Epithelial Cell,Urine 2 /hpf (0-4); WBC,Urine >182 /hpf (0-5)
[2024-08-16] MEDS: cefTRIAXone IN SWFI 1,000 MG/10 ML SYRINGE IVP STA (11:16)
[2024-08-16] MEDS: metroNIDAZOLE-NS PMX 500 MG in SALINE 1 100ML.BAG IVPB STA (11:20)
[2024-08-16] MEDS ORDERED: NALOXONE 0.4 MG/ML 1 ML VIAL IV PRN (11:32)
[2024-08-16] MEDS ORDERED: IBUPROFEN 400 MG TAB PO PRN (11:32)
[2024-08-16] MEDS ORDERED: ONDANSETRON 4 MG/2 ML VIAL IVP PRN (11:32)
[2024-08-16] MEDS: SODIUM CHLORIDE 0.9% 1,000 ML IV SCH (11:59)
[2024-08-16] MEDS ORDERED: MORPHINE SULFATE 2 MG/ML SYRINGE IVP PRN (14:59)
[2024-08-16] MEDS: KETOROLAC 15 MG/ML 1 ML VIAL IVP PRN (15:08)
[2024-08-16] MEDS: FLUCONAZOLE 150 MG TAB PO STA (15:34)
--- NOTE | 2024-08-16 15:44 | US ---
EXAMINATION TYPE: US kidneys/renal and bladder DATE OF EXAM: 08/16/2024 COMPARISON: CT 2022 CLINICAL INDICATION: Female, 54 years old with history of right flank pain; TECHNIQUE: Grayscale imaging of the bilateral kidneys and urinary bladder: FINDINGS: EXAM MEASUREMENTS: Right Kidney: 11.1 x 5.1 x 5.0 cm Left Kidney: 10.5 x 6.3 x 4.3 cm Right Kidney: wnl Left Kidney: visualized portions wnl, limited by overlying bowel gas Bladder: not distended There is no evidence for hydronephrosis at this point in time. No nephrolithiasis is seen. No davida s are identified. The urinary bladder is anechoic. IMPRESSION: No evidence for obstructive uropathy or acute process. [facility], , 08/16/2024 3:42 PM
[2024-08-16] MEDS ORDERED: HYDROmorphone 0.5 MG/0.5 ML SYRINGE IVP PRN (15:55)
--- NOTE | 2024-08-16 16:06 | P.HPIM ---
History of Present Illness H&P Date: 08/16/24 54 year old F with PMH of Depression presents to the ED for a constellation of symptoms. 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 Reports symptoms started Tuesday. Symptoms include fever as high as 99.7F, chills, myalgias, lightheadedness, headache (occipital with photophobia), diarrhea (watery only la sted one day) and generalized weakness. She also reports dysuria, suprapubic spasms and yellow/white foul smelling vaginal discharge. She is sexually active. Post menopausal. Today, she started to experience right flank pain which was unbearable which prompted her to come to the ED. In the ED she underwent extensive evaluation. BP 128/83, HR 129, RR 18, T 98.3F, 99% on RA. CBC, Coag panel, CMP significant for WBC 21.7, Na 135, bicarb 20, glu 140, Ca 10.3. Trop < 0.012. Amylase 54. Lipase 62. UA large LE with > 182 WBCs. Flu, RSV, COVID neg. EKG sinus tachycardia rate of 127. CXR no acute process. Patient is admitted for further workup and management. ER management: 1L NS bolus, 1g Rocephin IV, 500 mg IV Flagyl, 15 mg IV Toradol, 4 mg IV Zofran General: non toxic, no distress, appears at stated age Derm: warm, dry Head: atraumatic, normocephalic, symmetric Eyes: EOMI, no lid lag, anicteric sclera Mouth: no lip lesion, mucus membranes moist Cardiovascular: S1S2 tachy, no murmur Lungs: CTA bilateral, no rhonchi, no rales , no accessory muscle use Abdominal: soft, suprapubic tenderness, no guarding, no appreciable organomegaly Ext: no gross muscle atrophy, no edema, no contractures Neuro: no focal neuro deficits Psych: Alert, oriented, appropriate affect Based on my assessment of this patient, this patient meets a high complexity level of care. Sepsis likely due to UTI/pyelonephritis: Obtain CT AP if renal US unrevealing. Obtain lactic acid. Obtain UCx + BCx. NS at 75 cc/hr. Pain management with Toradol 15 mg IV Q6H PRN, Dilaudid 0.5 mg IV Q3H PRN. Tylenol 650 mg PO Q6H or Ibuprofen 400 mg PO Q6H PRN fever. Telemetry monitoring. Vaginal discharge: Obtain GC/Chlamydia PCR. Obtain genital Cx. Empirically treated with Diflucan 150 mg PO x 1 + Flagyl 500 mg IV x 1. Depression: Paxil 15 mg PO QD. CODE STATUS: FULL CODE. DVT Prophylaxis: Lovenox SQ GI Prophylaxis: Designated medical POA if patient is not able to make medical decisions for themselves: I have reviewed the following mining consultant notes: ED note. I have reviewed the results of the following tests: As above. I have ordered the following tests: As above. I have discussed the care of this patient with the following independent historian: Zoey I have independently interpreted the following test below: CXR I have discussed the management of this patient with the following physician: Past Medical History Past Medical History: Asthma History of Any Multi-Drug Resistant Organisms: None Reported Past Surgical History: Section, Cholecystectomy, Tonsillectomy Additional Past Surgical History / Comment(s): Tubal Past Anesthesia/Blood Transfusion Reactions: No Reported Reaction Past Psychological History: Depression Smoking Status: Vaper Past Alcohol Use History: None Reported Past Drug Use History: Marijuana Medications and Allergies Home Medications Medication Instructions Recorded Confirmed Type PARoxetine [Paxil] 15 mg PO DAILY 10/16/18 08/16/24 History Cholecalciferol (Vitamin D3) 50 mcg PO DAILY 08/16/24 08/16/24 History [Vitamin D3 (50 Mcg = 2000 Iu)] Allergies Allergy/AdvReac Type Severity Reaction Status Date / Time Iodinated Contrast Media Allergy Anaphylaxis Verified 08/16/24 11:13 [Iodinated Contrast- Oral and IV Dye] shellfish derived [Shellfish] Allergy Hives all Verified 08/16/24 11:13 over morphine AdvReac Itching Verified 08/16/24 11:13 Physical Exam Vitals: Vital Signs Temp Pulse Resp BP Pulse Ox 08/16/24 13:04 93 18 118/67 95 08/16/24 10:00 105 H 22 134/72 94 L 08/16/24 09:55 97 95 08/16/24 09:35 98.3 F 103 H 24 128/79 98 08/16/24 08:07 98.3 F 129 H 18 128/83 99 Intake and Output 08/15/24 08/16/24 08/16/24 22:59 06:59 14:59 Other: Weight 72.575 kg Results CBC & Chem 7: 08/16/24 08:31 08/16/24 08:31 Labs: Abnormal Lab Results - Last 24 Hours (Table) 08/16/24 08/16/24 08/16/24 Range/Units 08:31 08:31 09:35 WBC 21.7 H (3.8-10.6) k/uL Neutrophils # 18.5 H (1.3-7.7) k/uL Monocytes # 1.1 H (0-1.0) k/uL Sodium 135 L (137-145) mmol/L Carbon Dioxide 20 L (22-30) mmol/L Glucose 140 H (74-99) mg/dL Calcium 10.3 H (8.4-10.2) mg/dL Urine Appearance Cloudy H (Clear) Urine Protein 1+ H (Negative) Urine Ketones 3+ H (Negative) Urine Blood Moderate H (Negative) Ur Leukocyte Esterase Large H (Negative) Urine RBC 42 H (0-5) /hpf Urine WBC >182 H (0-5) /hpf Urine Bacteria Rare H (None) /hpf Urine Mucus Many H (None) /hpf
--- NOTE | 2024-08-16 17:41 | CT ---
EXAMINATION TYPE: CT abdomen pelvis wo con DATE OF EXAM: 08/16/2024 5:18 PM COMPARISON: 11/17/2022 CLINICAL INDICATION: Female, 54 years old with history of Abd pain; Lower abdomen/pelvic pain TECHNIQUE: Axial CT abdomen pelvis wo con;Sagittal and coronal reformats were created on a separate workstation. Contrast used: mL of , (none if empty) Oral contrast used: without Oral Contrast (none if empty) CT DLP: 480.7 mGycm, Automated exposure control for dose reduction was used. FINDINGS: LOWER CHEST: Unremarkable ABDOMEN LIVER: Unremarkable GALLBLADDER AND BILE DUCTS: The gallbladder is surgically absent. PANCREAS: Unremarkable. SPLEEN: Unremarkable. ADRENAL GLANDS: Unremarkable. KIDNEYS AND URETERS: No evidence of hydronephrosis or renal calculus. The ureters are unremarkable. PELVIS BLADDER: No evidence for wall thickening or mass given limitations of exam. REPRODUCTIVE: Unremarkable. ABDOMEN & PELVIS STOMACH AND BOWEL: No evidence of bowel obstruction. The appendix is not definitively visualized due to small bowel adjacent structures. There is redundant colon in the left upper quadrant PERITONEUM/RETROPERITONEUM: No evidence of pneumoperitoneum or free fluid. VASCULATURE: No evidence of aortic aneurysm. MUSCULOSKELETAL: No acute osseous abnormalities. Mild disc degeneration changes are present throughou t the thoracolumbar spine. LYMPH NODES: No gross evidence for lymphadenopathy. SOFT TISSUE/ABDOMINAL WALL: Fat-containing umbilical hernia. IMPRESSION: No evidence for acute process to explain the patient's pain. [facility], , 08/16/2024 5:38 PM
[2024-08-16] MEDS: ACETAMINOPHEN TAB 325 MG TAB PO PRN (19:59)
[2024-08-17] MEDS: LORazepam 1 MG TAB PO PRN (06:45)
[2024-08-17] MEDS: PARoxetine 10 MG TAB PO SCH (08:04)
[2024-08-17] MEDS: ENOXAPARIN 40 MG/0.4 ML SYRINGE SQ SCH (08:04)
[2024-08-17 12:29] LABS: C. trachomatis,PCR Negative (Negative)
[2024-08-17 12:30] LABS: N. gonorrhoeae,PCR Negative (Negative)
--- NOTE | 2024-08-17 13:38 | P.PN ---
Subjective Progress Note Date: 08/17/24 54 year old F with PMH of Depression presents to the ED for a constellation of symptoms. 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 Symptoms include fever as high as 99.7F, chills, myalgias, lightheadedness, headache (occipital with photophobia), diarrhea (watery only lasted one day) and generalized weakness. She also reports dysuria, suprapubic spasms and yellow/white foul smelling vaginal discharge. She is sexually active. Post menopausal. Today, she started to experience right flank pain which was unbearable which prompted her to come to the ED. In the ED she underwent extensive evaluation. BP 128/83, HR 129, RR 18, T 98.3F, 99% on RA. CBC, Coag panel, CMP significant for WBC 21.7, Na 135, bicarb 20, glu 140, Ca 10.3. Trop < 0.012. Amylase 54. Lipase 62. UA large LE with > 182 WBCs. Flu, RSV, COVID neg. EKG sinus tachycardia rate of 127. CXR no acute process. Patient is admitted for further workup and management. ER management: 1L NS bolus, 1g Rocephin IV, 500 mg IV Flagyl, 15 mg IV Toradol, 4 mg IV Zofran 1/3 Patient was seen and examined. Reports overall improvement in symptoms. Suprapubic pain improved with Toradol. Maintained on Rocephin 1g IV QD (D2). Renal US and CT AP neg for acute pathology. Lactic acid 0.6. UCx shows 100k genital skin nan. GC, C negative. General: non toxic, no distress, appears at stated age Derm: warm, dry Head: atraumatic, normocephalic, symmetric Eyes: EOMI, no lid lag, anicteric sclera Mouth: no lip lesion, mucus membranes moist Cardiovascular: S1S2 reg, no murmur Lungs: CTA bilateral, no rhonchi, no rales , no accessory muscle use Abdominal: soft, suprapubic tenderness, no guarding, no appreciable organomega ly Ext: no gross muscle atrophy, no edema, no contractures Neuro: no focal neuro deficits Psych: Alert, oriented, appropriate affect Based on my assessment of this patient, this patient meets a high complexity level of care. Sepsis likely due to UTI/pyelonephritis: Repeat UCx. Follow BCx. NS at 75 cc/hr. Pain management with Toradol 15 mg IV Q6H PRN, Dilaudid 0.5 mg IV Q3H PRN. Tylenol 650 mg PO Q6H or Ibuprofen 400 mg PO Q6H PRN fever. Telemetry monitoring. Vaginal discharge: GC/Chlamydia negative. Genital Cx pending. Empirically treated with Diflucan 150 mg PO x 1 + Flagyl 500 mg IV x 1 on admission. Depression: Paxil 15 mg PO QD. CODE STATUS: FULL CODE. DVT Prophylaxis: Lovenox SQ GI Prophylaxis: Designated medical POA if patient is not able to make medical decisions for themselves: I have reviewed the following wireless sales consultant notes: I have reviewed the results of the following tests: Lactic acid. UCx. Renal US. CT AP. I have ordered the following tests: Repeat UCx. I have discussed the care of this patient with the following independent historian: MIAN Greer. I have independently interpreted the following test below: I have discussed the management of this patient with the following physician: Objective - Vital Signs Vital signs: Vital Signs Temp 97.9 F 08/17/24 13:11 Pulse 84 08/17/24 13:11 Resp 16 08/17/24 13:11 BP 110/70 08/17/24 13:11 Pulse Ox 96 08/17/24 13:11 FiO2 Intake & Output 08/16/24 08/17/24 08/17/24 18:59 06:59 18:59 Weight 72.575 kg Other: Voiding Method Toilet Toilet # Voids 1 1 - Labs CBC & Chem 7: 08/16/24 08:31 08/16/24 08:31 Labs: Abnormal Lab Results - Last 24 Hours (Table) 08/16/24 Range/Units 16:10 Plasma Lactic Acid Serjio 0.6 L (0.7-2.0) mmol/L Microbiology - Last 24 Hours (Table) 08/16/24 10:44 Urine Culture - Final Urine,Clean Catch
[2024-08-17] MEDS: HYDROCORTISONE 1% CREAM 30 GM TUBE TOPICAL PRN (18:30)
[2024-08-18 07:01] LABS: HCT 36.8 % (34.0-46.0); HGB 12.2 gm/dL (11.4-16.0); MCH 33.2 pg (25.0-35.0); MCHC 33.9 g/dL (31.0-37.0); Mean Platelet Volume 8.1; Platelet Count 263 k/uL (150-450); RBC 3.75 m/uL (3.80-5.40); RDW 12.6 % (11.5-15.5); WBC 5.9 k/uL (3.8-10.6)
[2024-08-18 07:02] LABS: African American GFR (CKD) >90 (>60 ml/min/1.73 sqM); Anion Gap 8 mmol/L; Blood Urea Nitrogen 14 mg/dL (7-17); Calcium 8.9 mg/dL (8.4-10.2); Carbon Dioxide 26 mmol/L (22-30); Chloride 105 mmol/L (98-107); Glucose 93 mg/dL (74-99); Non-African American GFR(CKD) >90 (>60 ml/min/1.73 sqM); Potassium 3.9 mmol/L (3.5-5.1); Sodium 139 mmol/L (137-145)
[2024-08-18 08:32] VITALS: BP 110/68; PULSE 69; RESP 17; TEMP 98.4
--- NOTE | 2024-08-18 11:52 | P.DS ---
Providers Date of admission: 08/16/24 10:17 Expected date of discharge: 08/18/24 Attending physician: Raudel Bernal Primary care physician: Tha [facility] Hospital Course: 54 year old F with PMH of Depression presents to the ED for a constellation of symptoms. 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 Symptoms include fever as high as 99.7F, chills, myalgias, lightheadedness, headache (occipital with photophobia), diarrhea (watery only lasted one day) and generalized weakness. She also reports dysuria, suprapubic spasms and yellow/white foul smelling vaginal discharge. She is sexually active. Post menopausal. Today, she started to experience right flank pain which was unbearable which prompted her to come to the ED. In the ED she underwent extensive evaluation. BP 128/83, HR 129, RR 18, T 98.3F, 99% on RA. CBC, Coag panel, CMP significant for WBC 21.7, Na 135, bicarb 20, glu 140, Ca 10.3. Trop < 0.012. Amylase 54. Lipase 62. UA large LE with > 182 WBCs. Flu, RSV, COVID neg. EKG sinus tachycardia rate of 127. CXR no acute process. Patient is admitted for further workup and management. ER management: 1L NS bolus, 1g Rocephin IV, 500 mg IV Flagyl, 15 mg IV Toradol, 4 mg IV Zofran. 08/17 Patient was seen and examined. Reports overall improvement in symptoms. Suprapubic pain improved with Toradol. Maintained on Rocephin 1g IV QD (D2). Renal US and CT AP neg for acute pathology. Lactic acid 0.6. UCx shows 100k genital skin nan. GC, C negative. 08/18 Patient was seen and examined. Reports feeling well. Mild headache and dysuria but symptoms otherwise resolved. UCx shows > 100k genital nan. Repeat UCx has been sent. CBC and BMP significant for RBC 3.75. Discharge Plan: Ciprofloxacin 500 mg PO BID x 4 days. Ativan 1 mg PO TID PRN anxiety. Toradol 10 mg PO Q6H PRN breakthrough pain. Follow up with your PCP within 1-2 days of discharge. General: non toxic, no distress, appears at stated age Derm: warm, dry Head: atraumatic, normocephalic, symmetric Eyes: EOMI, no lid lag, anicteric sclera Mouth: no lip lesion, mucus membranes moist Cardiovascular: S1S2 reg, no murmur Lungs: CTA bilateral, no rhonchi, no rales , no accessory muscle use Abdominal: soft, suprapubic tenderness, no guarding, no appreciable organomegaly Ext: no gross muscle atrophy, no edema, no contractures Neuro: no focal neuro deficits Psych: Alert, oriented, appropriate affect Discharge Diagnosis: Sepsis likely due to UTI/pyelonephritis Vaginal discharge Depression Anxiety This complex discharge took 35 minutes to complete. Patient Condition at Discharge: Stable Plan - Discharge Summary Discharge Rx Participant: No New Discharge Prescriptions: New Ciprofloxacin HCl [Cipro] 500 mg PO Q12HR 4 Days #8 tab Acetaminophen Tab [Tylenol] 650 mg PO Q6HR PRN tab PRN Reason: Mild Pain Or Fever > 100.5 LORazepam [Ativan] 1 mg PO TID PRN 3 Days #9 tab PRN Reason: Anxiety Ketorolac [Toradol] 10 mg PO Q6HR PRN #20 tab PRN Reason: Breakthrough Pain Continue PARoxetine [Paxil] 15 mg PO DAILY Cholecalciferol (Vitamin D3) [Vitamin D3 (50 Mcg = 2000 Iu)] 50 mcg PO DAILY Discharge Medication List PARoxetine [Paxil] 15 mg PO DAILY 10/16/18 [History] Cholecalciferol (Vitamin D3) [Vitamin D3 (50 Mcg = 2000 Iu)] 50 mcg PO DAILY 08/16/24 [History] Acetaminophen Tab [Tylenol] 650 mg PO Q6HR PRN tab 08/18/24 [Rx] Ciprofloxacin HCl [Cipro] 500 mg PO Q12HR 4 Days #8 tab 08/18/24 [Rx] Ketorolac [Toradol] 10 mg PO Q6HR PRN #20 tab 08/18/24 [Rx] LORazepam [Ativan] 1 mg PO TID PRN 3 Days #9 tab 08/18/24 [Rx] Follow up Appointment(s)/Referral(s): Tha Quintana MD [Primary Care Provider] - 1-2 days Discharge Disposition: HOME SELF-CARE
== END 2024-08-18 13:35 | disposition home or self-care (01) | DRG 872 ==
LOC: EC 08:05 → 5NMEDONC 10:17 → 4SSUR 15:13
PROVIDERS: ADMIT Student in an Organized Health Care Education/Training Program; ATTEND Student in an Organized Health Care Education/Training Program
DX: A41.9 Sepsis, unspecified organism (principal); N12 Tubulo-interstitial nephritis, not specified as acute or chronic; F32.A Depression, unspecified; F41.9 Anxiety disorder, unspecified; J45.909 Unspecified asthma, uncomplicated; N89.8 Other specified noninflammatory disorders of vagina; Z79.899 Other long term (current) drug therapy; H53.149 Visual discomfort, unspecified; Z28.21 Immunization not carried out because of patient refusal; Z20.822 Contact with and (suspected) exposure to COVID-19; F17.290 Nicotine dependence, other tobacco product, uncomplicated; Z91.041 Radiographic dye allergy status; Z88.5 Allergy status to narcotic agent; Z91.013 Allergy to seafood
CPT/HCPCS: 36415; 71046; 74176; 76770; 80048; 80053; 81001; 82150; 83605; 83690; 84484; 85025; 85027; 85610; 85730; 87040; 87086; 87491; 87591; 87636; 93005; 94760; 96361; 96365; 96366; 96375; 96376; 99285